=== PATIENT | male | born 1995 | race Caucasian/White ===

== ENCOUNTER 2016-09-24 12:57 | Inpatient (IN) | payer OTHER ==
[~2016-09-24] VITALS: Ht 180.3 cm; Wt 115.2 kg
[2016-09-24 13:15] VITALS: BP 133/84; PULSE 84; RESP 18; O2SAT 98
--- NOTE | 2016-09-24 13:56 | ED.REPORT ---
HPI-Extremity Problem Lower Date of Service Sep 24, 2016 ED Provider: Jayce Bal DO Patient is a 21 year old male who presents to the ED complaining of left leg pain onset 4 days ago. Associated symptoms include swelling and erythema of the leg. He denies fever, chest pain or shortness of breath. Patient denies having any open wounds or recent injury to his leg. The patient was seen earlier at who recommended the patient come to the ED. He is unsure his family's history for blood clots. Patient also states that he had a mass on his lung a few years ago that was supposed to be followed due to suspicion for cancer vs pneumonia but hasn't had it checked on. Nursing Notes Stated Complaint: SWOLLEN LEFT LEG Chief Complaint: Extremity Trauma Nursing Notes Reviewed: Yes Allergies: Coded Allergies: No Known Allergies (Unverified , 09/24/16) General Time Seen by MD: 13:56 Chief Complaint Leg injury left Hx Obtained From: Patient Arrived By: Walk-in Onset Occurred: 3 days ago Symptom Duration: Since onset Location: : Leg left Quality: Painful Severity: Current: Moderate Associated with: Reports: Unable to bear weight Immunizations: Unknown Recent Healthcare: No recent doctor visit, No recent hospitalization Similar Sx Previous: No Past Medical History Past Medical History none reported Past Surgical History none reported Smoking History Current Every Day Smoker Social History Alcohol Use: "Social" Drug Use: Denies drug use Other Social History: Good social support Ambulatory Status Independent Review of Systems Constitutional: Denies: Chills, Fatigue Musculoskeletal: Reports: Extremity pain, Extremity swelling Complete sys rev & neg: except as marked. Respiratory: Denies: Non-productive cough, Shortness of breath Cardiovascular: Denies: Chest pain Physical Exam Initial Vital Signs Vital Signs (First) Date Time Temp Pulse Resp B/P Pulse Ox O2 Delivery O2 Flow Rate FiO2 09/24/16 13:15 36.6 84 18 133/84 98 Room Air Initial VS: Reviewed LOWER EXTREMITIES: unilateral swelling of the left leg varicose veins scattered nummular eczema no erythema or warmth Left Ankle: Positive: Swelling present..., Tenderness present... General/Constitutional: Awake, Alert Distress / Hydration: Positive: Distress mild Respiratory / Chest: Atraumatic, Breath sounds NL, Breath sounds = bilat, No respiratory distress Cardiovascular: Heart rate NL, Regular rhythm, Heart sounds NL Skin: Atraumatic, Color NL, No rash, Warm, Dry Neurologic: Oriented X3, Speech NL, No motor deficits, No sensory deficits 2+ dorsal pedis pulses Head / Eyes: Atraumatic, Normocephalic, PERRL, EOMI Upper Extremity / MS: Atraumatic, Full range of motion Psychiatric: Affect NL, Mood NL Interpretation & Diagnostics Lab Results Interpretation Result Diagram: 09/24/16 1430 09/24/16 1430 Test 09/24/16 14:30 White Blood Count 15.2th/mm3 (3.8-10.1) Red Blood Count 5.12mil/mm3 (4.40-5.80) Hemoglobin 15.9g/dL (13.8-17.2) Hematocrit 46.9% (41.0-50.0) Mean Corpuscular Volume 91.6fL (81-100) Mean Corpuscular Hemoglobin 31.1pg (27.0-35.0) Mean Corpuscular Hemoglobin Concent 33.9% (32.0-37.0) Red Cell Distribution Width 12.7% (12.3-15.4) Platelet Count 194bil/L (150-400) Neutrophils (%) (Auto) 72.9% (40-74) Lymphocytes (%) (Auto) 11.4% (14-46) Monocytes (%) (Auto) 15.0% (4-12) Eosinophils (%) (Auto) 0.3% (0-5) Basophils (%) (Auto) 0.1% (0-3) Prothrombin Time 10.6sec (8.1-12.5) Prothromb Time International Ratio 0.99ratio Activated Partial Thromboplast Time 26.3sec (22.8-33.0) Sodium Level 138mEq/L (134-144) Potassium Level 4.3mEq/L (3.5-5.2) Chloride Level 100mEq/L (97-108) Carbon Dioxide Level 20mmol/L (18-29) Blood Urea Nitrogen 7mg/dL (6-20) Creatinine 0.46mg/dL (0.76-1.27) Estimat Glomerular Filtration Rate 246mL/min (>59) Glucose Level 104mg/dL (60-99) Calcium Level 9.2mg/dL (8.5-10.1) Total Bilirubin 1.0mg/dL (0.0-1.2) Aspartate Amino Transf (AST/SGOT) 18U/L (0-50) Alanine Aminotransferase (ALT/SGPT) 17U/L (0-44) Alkaline Phosphatase 81U/L (25-150) Total Protein 7.3g/dL (6.4-8.4) Albumin 3.9g/dL (3.4-5.0) Re-Eval/Medical Decision Med Decision/Clinical Course Unilateral leg swelling and pain concern for DVT. Care transfer to Dr. Bell pending ultrasound. Discharge & Departure Shift Change Sign-Out Patient Care Transferred: Yes Discussed Complaint(s): Yes Impression: Primary Impression: Left leg cellulitis Discharge Condition All VS Reviewed: Yes Condition: Stable Referrals: NOPCP (PCP) Care Transferred to: Dr. Bell Care Transferred at: 15:06 Margarita Attestation Portions of this note were transcribed by Gisell Andrade. I, Dr. Peter Buchanan personally performed the history, physical exam and medical decision-making; I reviewed and confirmed the accuracy of the information in the transcribed note. Signed by: Margarita Issa, 09/24/16 and 1420 Jayce Euceda DO Sep 24, 2016 13:56 Jannet Andrade Sep 24, 2016 14:12
[2016-09-24] MEDS ORDERED: Ondansetron 8 mg ODT Tablet PO ONE (14:10)
[2016-09-24] MEDS ORDERED: HYDROmorphone 1 mg/mL Inj IM ONE (14:10)
[2016-09-24 14:39] LABS: BASOPHILS % (AUTO) 0.1 % (0-3); EOSINOPHILS % (AUTO) 0.3 % (0-5); Mean Corpuscular Hemoglobin 31.1 pg (27.0-35.0); Mean Corpuscular Volume 91.6 fL (81-100); NEUTROPHILS % (AUTO) 72.9 % (40-74); Platelet Count 194 bil/L (150-400)
[2016-09-24 14:56] LABS: INR 0.99 ratio
[2016-09-24] MEDS: HYDROmorphone 0.5 mg/0.5 mL iSecure Syringe IVPUSH PRN ×3 (15:05→17:13)
--- NOTE | 2016-09-24 16:19 | DRSVH ---
PROCEDURE: US VEINOUS LEG DUPLEX UNILATERAL, LEFT INDICATIONS: UNILATERAL SWELLING AND PAIN TECHNIQUE: Real-time imaging, as well as color and pulse Doppler interrogation, were performed of the lower extr emity deep veins from the inguinal ligament to the popliteal fossa. COMPARISON: None. FINDINGS: There are occlusive filling defects involving the mid to distal femoral vein, popliteal vei n, peroneal vein posterior tibial vein consistent with intraluminal thrombus. Nonocclusive filling de fect is seen in the proximal femoral vein. IMPRESSION: Extensive deep venous thrombosis in the left lower extremity. Dictated by: Florence Michaels M.D. on 09/24/2016 at 16:16 Approved by: Florence Michaels M.D. on 09/24/2016 at 16:17
[2016-09-24] MEDS ORDERED: Heparin 5,000 Unit/mL Inj IVPUSH PRN (16:50)
[2016-09-24] MEDS ORDERED: Heparin 5,000 Unit/mL Inj IVPUSH ONE (16:50)
[2016-09-24] MEDS ORDERED: Heparin 25K Unit/500mL 0.45 NS 25,000 UNIT in IV Premix 1 EACH IV SCH ×3 (16:50→21:25)
[2016-09-24 17:19] VITALS: BP 124/60; PULSE 81; RESP 16; O2SAT 95
[2016-09-24] MEDS ORDERED: Dextrose 5% 0.45% NaCl 1,000 ML IV SCH (18:07)
[2016-09-24] MEDS ORDERED: Alum-Mag Hydrox-Simeth 30 mL Suspension PO PRN ×2 (18:10→21:00)
[2016-09-24] MEDS ORDERED: Ondansetron 2 mg/mL 2 mL Inj IVPUSH PRN ×2 (18:10→21:00)
[2016-09-24] MEDS: HYDROmorphone 1 mg/mL Inj IVPUSH PRN ×2 (18:13→20:41)
[2016-09-24 19:01] VITALS: BP 121/72; PULSE 95; RESP 18; O2SAT 97
--- NOTE | 2016-09-24 20:00 | NUR ---
ADMIT Pt arrived at 1999 via gurney, walked to bed with some help r/t leg pain. Mom with him. Pt in 910 pain despite Dilaudid given. Heparin gtt at 18 units/kg/hr. Next ptt to be drawn at 2200. Continuing care.
[2016-09-24 20:51] VITALS: BP 128/84; PULSE 85; RESP 20; O2SAT 98
[2016-09-24] MEDS: 0.9% Sodium Chloride 1,000 ML IV SCH (20:59)
[2016-09-24] MEDS ORDERED: Polyethylene Glycol (PEG) 17 Gm Powder PO PRN (21:00)
[2016-09-24] MEDS ORDERED: RANI300C PO (21:22)
[2016-09-24] MEDS ORDERED: Heparin Protocol Boluses IVPUSH PRN (21:25)
[2016-09-24] MEDS: HYDROcodone-APAP 5-325 mg Tablet PO PRN (21:27)
[2016-09-24] MEDS ORDERED: HYDR50TA76 PO (23:45)
[2016-09-24] MEDS ORDERED: hydrOXYzine Pamoate 25 mg Capsule PO PRN (23:50)
[2016-09-25] VITALS (11 sets, daily range): BP systolic 106–125; BP diastolic 60–83; PULSE 54–88; RESP 16–24; O2SAT 93–100
--- NOTE | 2016-09-25 00:01 | PCM.HPMED ---
Subjective Date of Service Sep 24, 2016 Primary Provider: Admitting Physician: Rush Mari MD Primary Care Physician: Irma Devlin MD Attending Physician: Rush Mari MD Chief Complaint: Left leg pain History of Present Illness: Luis Milner is a 21-year-old gentleman presents with left lower extremity pain started 4 days ago, started to cramp in his left lower extremity after sleeping on the floor 1 night. Pain got progressively worse until today when he got out of bed and said he was not able to bear any weight. He used a cane to ambulate today before and in the emergency department. He's currently every day smoker for 30 years, drinks 2 beers a night no previous surgeries there is family history of breast and cervical cancer on his mom's side denies any known medical problems on his father's side, no history of blood clots in the family were previously. States he was treated for pneumonia about a year ago and developed hemoptysis at the time was treated as an outpatient but described as brandon blood. He was told he is also a follow-up x-ray to evaluate for evolution of opacity that was seen at that time which he never did. He denies any fevers chills, lightheadedness dizziness, chest pain, shortness of breath, dysuria, constipation diarrhea or nausea, no history of the same, only symptom at this time is pain to his left posterior tibial region. On presentation 36.6C 84, 18, 133/84, 98% on room air WBC 15.2, 15% monocytes, CMP unremarkable, INR 0.99 Venous ultrasound of his leg showed extensive deep venous thrombosis. Case was discussed with interventional radiologist Dr. Rodriguez, dairy feed worker Dr. Valiente and Dr. Cruz, ultimately the consensus was Dr. Cruz will see the patient in the hospital tomorrow and evaluate for response to heparin therapy. Patient was started on heparin drip and admitted for acute DVT. Review of Systems: A comprehensive review of systems was conducted with the patient and found to be negative except as above in the history of presenting illness. Allergies Coded Allergies: No Known Allergies (Unverified , 09/24/16) Home Medications Hydroxyzine 50 mg daily at bedtime when necessary for insomnia Ranitidine 300 mg daily PMH Insomnia Allergies Obesity Tobacco abuse Marijuana abuse History of hemoptysis with uncertain etiology Surgical History Denies any surgeries Family History Mother LSIL, breast cancer on her side Biological father denies any known medical problems. Social History Hx Alcohol Use: Yes Alcoholic Drinks Per Day: 1/5 a night a few months ago, now three beers a night Hx Substance Use: Yes (marijuana nightly, 09/23/16) Smoking Status: Current Every Day Smoker Living Arrangement: with Family Exam Vital Signs Vital Sign - Last Date Time Temp Pulse Resp B/P Pulse Ox O2 Delivery O2 Flow Rate FiO2 09/24/16 20:51 36.7 85 20 128/84 98 09/24/16 19:01 Room Air Exam General: Laying in bed, no apparent distress. Age-appropriate HEENT: Normocephalic, atraumatic, EOMI grossly, mucous membranes moist, neck supple without lymphadenopathy, Cardiovascular: Regular rate and rhythm, no clicks murmurs rubs, peripheral pulses 2/4 equal bilaterally including DPs Pulmonary: Clear to auscultation bilaterally, no W/R/R. Abdominal: Soft to palpation, bowel sounds present 4, no hepatosplenomegaly. Negative rebound. Extremities: Left lower extremity is larger compared to right, there is no obvious redness, however lower extremities warmer than right, tenderness the posterior tibial area, no pallor or cyanosis Neuro: Neurologically grossly intact. MSK: Upper extremities equal bilaterally 5 out of 5 strength, left lower extremity difficult to move secondary to pain passive and active. Psych: Oriented to person place time and situation, and appropriate mood and affect. Lab and Diagnostics Result Diagram: 09/24/16 1430 09/24/16 1430 X-Rays, CTs and MRIs Left lower extremity duplex ultrasound, performed 09/24/2016 IMPRESSION: Extensive deep venous thrombosis in the left lower extremity. Dictated by: Florence Michaels M.D. on 09/24/2016 at 16:16 Assessment & Plan 21-year-old male every day smoker, history of suspicious opacity on x-ray, presents with left lower extremity pain evaluation showed diffuse DVT, started on heparin. Acute left lower extremity DVT, POA, active Warm, edematous, ultrasound proven DVT. Etiologies include venous stasis from laying on the floor, chronic smoking, and concern for cancer. Heparin drip Cardiovascular intervention to be determined, Dr. Cruz consulted and following. Chest x-ray 2 view to evaluate for resolution of opacity in the presence of tobacco use, previous hemoptysis, and failure to follow up on resolution. Pain management with Vicodin, hydromorphone IV every 3 hours for breakthrough pain We will defer the choice for long-term anticoagulation to day team and specialist. Monitor for abrupt SOB and or CP, other signs of embolization. Unfortunately the patient cannot have a hypercoagulable workup as he has already received Heparin Chronic insomnia, POA active Continue home medication of hydroxyzine 50 mg daily at bedtime when necessary Chronic tobacco abuse, POA active Tobacco cessation education Nicotine patch Patient is admitted to inpatient status, greater than 2 minutes and dissipated based on presenting symptoms, complexity of care, and anticipated risk of adverse events. Pain Evaluation: Pain not Controlled GI Prophylaxis: Not indicated VTE Prophylaxis: Other (Heparin GGT) Resuscitation Status: CPR: Attempt Resuscitation Attending Statement The patient was seen and examined together with Dr. Dang on 09/24 and I agree with the history, exam and plan as outlined in the note above. Jairo Merrill DO Sep 25, 2016 00:01 Rush Mari MD Sep 25, 2016 01:25
[2016-09-25] MEDS: HYDROcodone-APAP 5-325 mg Tablet PO PRN ×4 (02:14→22:33)
--- NOTE | 2016-09-25 03:30 | NUR ---
PAIN Pt reports pain from 7-12/14. Upon admit, pt restless in bed and moaning in pain. VSS. Gave pt 1 mg Dilaudid. Pt slept, but woke up soon after reporting 12/[address] Merrill for additional orders. Giving 2 tabs [place] q4h while awake as well as 975mg of Tylenol with 0.5mg Dilaudid for severe breakthrough pain. Pt reporting some relief in pain compared to admit. Pt no longer noted to be moaning or is as restless in bed. Continuing care.
[2016-09-25] MEDS: 0.9% Sodium Chloride 1,000 ML IV SCH ×2 (05:23→16:16)
[2016-09-25] MEDS: HYDROmorphone 0.5 mg/0.5 mL iSecure Syringe IVPUSH PRN ×5 (05:28→19:51)
[2016-09-25] MEDS: Heparin 25K Unit/500mL 0.45 NS 25,000 UNIT in IV Premix 1 EACH IV SCH ×2 (05:39→18:59)
[2016-09-25 06:50] LABS: BASOPHILS % (AUTO) 0.2 % (0-3); EOSINOPHILS % (AUTO) 2.3 % (0-5); MONOCYTES % (AUTO) 15.9 % (4-12); Mean Corpuscular Hemoglobin 31.5 pg (27.0-35.0); NEUTROPHILS % (AUTO) 55.8 % (40-74); Platelet Count 200 bil/L (150-400)
--- NOTE | 2016-09-25 13:58 | NUR ---
Social Work- Screening/Readiness for Discharge Data: EMR reviewed. Pt is a 21 year old male admitted 09/24/16 under observation status for DVT per H&P. Pt's insurance is [email or web address]. Pt's PCP is Irma Devlin MD. SW met with pt at bedside regarding discharge plan, SW role explained. Pt alert and oriented x3. Pt resides in [place] near [place] with his mother, step father, and siblings where he is independent at baseline. Per chart review pt uses cane at baseline. Pt is noted to drink 3 beers daily. SW will follow for CD assessment orders from . Pt anticipated to discharge home with family to transport via POV. No discharge needs identified. SW will continue to follow if needs arise. Assessment: Pt who is independent at baseline. Plan: Pt anticipated to discharge home with family to transport via POV. No discharge needs identified. SW will continue to follow if needs arise. Ermelinda Josue MSW
--- NOTE | 2016-09-25 14:26 | PCM.PNMED ---
Subjective Date of Service Sep 25, 2016 Subjective Continues to have left lower extremity severe pain requiring Dilaudid but not responding much. Denies dyspnea Exam Vital Signs Vital Sign - Last Date Time Temp Pulse Resp B/P Pulse Ox O2 Delivery O2 Flow Rate FiO2 09/25/16 12:30 36.5 88 16 114/70 93 Room Air Intake and Output 09/24/16 09/24/16 09/25/16 Cumulative From/Thru 15:00 23:00 07:00 09/24/16 13:15 - 09/25/16 05:43 Intake Total 1455 ml 1455 ml Balance 1455 ml 1455 ml Intake IV Total 1455 ml 1455 ml # Voids 2 2 Exam General: Laying in bed, no apparent distress. Age-appropriate HEENT: Normocephalic, atraumatic, EOMI grossly, mucous membranes moist, neck supple without lymphadenopathy, Cardiovascular: Regular rate and rhythm, no clicks murmurs rubs, peripheral pulses 2/4 equal bilaterally including DPs Pulmonary: Clear to auscultation bilaterally, no W/R/R. Abdominal: Soft to palpation, bowel sounds present 4, no hepatosplenomegaly. Negative rebound. Extremities: Left lower extremity is larger compared to right, there is no obvious redness, however lower extremities warmer than right, tenderness the posterior tibial area, no pallor or cyanosis Neuro: Neurologically grossly intact. MSK: Upper extremities equal bilaterally 5 out of 5 strength, left lower extremity difficult to move secondary to pain passive and active. Psych: Oriented to person place time and situation, and appropriate mood and affect. IVs and Medications Medications Reviewed: Medications were reviewed in detail Lab and Diagnostics Result Diagram: 09/25/16 0600 09/25/16 0600 X-Rays, CTs and MRIs Left lower extremity duplex ultrasound, performed 09/24/2016 IMPRESSION: Extensive deep venous thrombosis in the left lower extremity. Dictated by: Florence Michaels M.D. on 09/24/2016 at 16:16 Assessment & Plan 21-year-old male every day smoker, history of suspicious opacity on x-ray, presents with left lower extremity pain evaluation showed diffuse DVT, started on heparin. #Acute left lower extremity DVT, POA, active Warm, edematous, ultrasound proven DVT. DVT seems to be unprovoked. Etiologies include venous stasis from laying on the floor, chronic smoking, and concern for cancer. Heparin drip Discussed with Dr. Cruz, patient continues to have severe pain. He will do thrombolysis later today Chest x-ray 2 view to evaluate for resolution of opacity in the presence of tobacco use, previous hemoptysis, and failure to follow up on resolution. Pain management with Vicodin, hydromorphone IV every 3 hours for breakthrough pain We will defer the choice for long-term anticoagulation after intervention Monitor for abrupt SOB and or CP, other signs of embolization. Unfortunately the patient cannot have a hypercoagulable workup as he has already received Heparin There is no literature evidence that panscanning to look for cancer is superior to age appropriate cancer screening for unprovoked DVT. PCP may consider doing a hypercoagulable workup and panscanning Outpatient given extensive family history of cancer. #Chronic insomnia, POA active Continue home medication of hydroxyzine 50 mg daily at bedtime when necessary #Chronic tobacco abuse, POA active Tobacco cessation education Nicotine patch Disposition: Discharge in 1-2 days GI Prophylaxis: Not indicated VTE Prophylaxis: Other (Heparin GGT) Resuscitation Status: CPR: Attempt Resuscitation Cheikh Guidry MD Sep 25, 2016 14:25
--- NOTE | 2016-09-25 16:32 | DRSVH ---
PROCEDURE: X-RAY CHEST, TWO VIEWS ([id number]) INDICATIONS: Resolution of previously seen opacity TECHNIQUE: 2 views of the chest were acquired. COMPARISON: None. FINDINGS: Surgical changes and devices: None. Lungs and pleura: No pleural effusions or pneumothorax. Lungs are clear. Mediastinum: Mediastinal contours are normal. Heart size is normal. Bones and chest wall: No suspicious bony abnormalities. Soft tissues appear unremarkable. IMPRESSION: No acute cardiopulmonary disease. Dictated by: Jony Plunkett [facility] Interpreted: Ok Kenney MD on 09/25/2016 at 14:00 Approved by: Ok Kenney M.D. on 09/25/2016 at 16:29
--- NOTE | 2016-09-25 16:33 | NUR ---
Pain/NPO Pt. has been c/o of left leg pain throughout shift and req. norco PRN PO ~q4hr. IV dilaudid PRN has been used x2 on shift for breakthrough pain. Pt. is also going to go for a EKOs procedure later this afternoon. Pt. has been placed NPO and Pt. ate last this morning having a few bites from the food that his mom brought him. Will continue to monitor.
--- NOTE | 2016-09-25 17:41 | CONS ---
[address] [address] CONSULTATION REPORT PATIENT: ROGER VILLALBA : 1995 MR#: [id number] ADMIT: 09/24/2016 JOB ID: [id number] DATE OF SERVICE: 09/24/2016 CHIEF COMPLAINT: Left leg pain. HISTORY OF PRESENT ILLNESS: This 21-year-old young man came in with history of swollen leg for the last four days. The patient had travel to [place]. He came back in a car. The patient states they took multiple breaks on the way to smoke. He has been ambulatory. However he subsequently started noticing cramping in his left leg and subsequently it also got swollen and it was painful enough that he decided to seek medical attention. Because of his swollen leg an ultrasound was ordered which was consistent with extensive DVT in the left lower extremity. He is denying any fevers, chills, shortness of breath, or any hemoptysis. PAST MEDICAL HISTORY: Mainly for pneumonia. PERSONAL HISTORY: He is a smoker. He used to drink heavily but currently about two beers a day. He occasionally smokes marijuana as well. MEDICATIONS AT HOME: Hydroxyzine and ranitidine. ALLERGIES: None. FAMILY HISTORY: I spoke to the patient's mother as well. There is no family history that she could tell me of bleeding diathesis or hypercoagulable disorders. REVIEW OF SYSTEMS: Comprehensive review of systems was done and is negative. More importantly, no history of GI or bleeding. No history of seizures or strokes. No bleeding diatheses. PHYSICAL EXAMINATION: Obese young man, mildly anxious. Pulse 88, blood pressure 128/84, room air ox 96% to 98%. Neck: Supple. No JVD. Chest: Clear. Heart sounds S1, S2, regular. No gallops. Left extremity is significantly swollen and larger than the right. Exquisite tenderness of the calf is noted. No pallor or cyanosis. PLASTIC BOAT PATCHER: Alert and oriented. LABORATORY DATA: Reviewed. White count was elevated at 15.2. Creatinine is normal. Hemoglobin was 15.9. Left extremity duplex was consistent with extensive deep venous thrombosis. ASSESSMENT AND PLAN: This young man presents with extensive deep venous thrombosis with occlusive defect involving the mid to distal femoral vein and the thrombus extends into the proximal femoral veins as well. My initial plan was to treat him conservatively; however, he continued to have leg discomfort and needed Dilaudid and [place]. I was called by Dr. Guidry to reevaluate the patient. After discussion with the patient today we decided to proceed ahead with catheter-directed thrombolysis. The patient is aware of the risks and benefits. His mother is also aware because I had spoken and discussed all this with the patient and his mother. The procedure is scheduled for later this evening.
[2016-09-25] MEDS ORDERED: Alteplase (Cathflo) Inj 10 MG in 0.9% Sodium Chloride 250 ML IV ONE (18:35)
--- NOTE | 2016-09-25 18:37 | NUR ---
Transfer Pt. was taken to the prosthetics lab technician for EKOS procedure and [place] [facility] [place]1730. Pt. left with some anxiety but valium 5mg PO was given per MD orders. After procedure Pt. will go to room 2013 CCU where report was given via telephone to Tish Eckert at about 1755. Pts. mom took all his belongings from room 246-2 and went with Pt. to wait in the waiting area.
--- NOTE | 2016-09-25 18:50 | NUR ---
Arrival to unit Pt arrived to room 2012. Opens eyes to verbal stimuli. Oriented x 3. Venous catheter site to left leg, c/d/i. No s/s of bleeding at site. Pulses intact. EKOS tx initiated. SR/SB per halfway house counselor. Pressure stable. Patient oriented to room and call light. Plan of care reviewed. Will continue to monitor.
[2016-09-25] MEDS ORDERED: LORazepam 0.5 mg Tablet PO PRN (19:00)
--- NOTE | 2016-09-25 19:45 | DI96 ---
[address] [address] PERIPHERAL CATHETERIZATION/INTERVENTION REPORT PATIENT: ROGER VILLALBA : 1995 MR#: [id number] ADMIT: 09/24/2016 JOB ID: [id number] PROCEDURE: 1. Catheter-directed thrombolysis of the left lower extremity. 2. Venogram. 3. Ultrasound-guided access. PROCEDURAL DETAILS: These are well enumerated in the procedure log, to which the reader and the coders are referred. Briefly, with using ultrasound guidance and an echogenic access needle, the left popliteal vein was accessed. Next a 6-[place] sheath was placed in the femoral vein and using a guidewire we were able to direct a catheter up into the common femoral vein. An EKOS catheter was then inserted. The patient will be started on tPA drip once he gets to the floor. Next, the venogram revealed extensive clot burden in the popliteal and the great saphenous vein. After placing the catheter in the proximal iliac vein, we did a brief injection. There was no evidence of clot in the iliacs. At this point, the catheter was withdrawn back and placed at the level of the femoral head. The ultrasonic wire was then placed in the catheter. There were no complications. The patient will be transported to the floor and will receive tPA infusion for 6 hours.
[2016-09-26] MEDS: 0.9% Sodium Chloride 1,000 ML IV SCH ×2 (03:30→12:59)
[2016-09-26 03:31] VITALS: BP 115/60; PULSE 53; RESP 21; O2SAT 99
[2016-09-26] MEDS: HYDROcodone-APAP 5-325 mg Tablet PO PRN ×4 (03:42→17:37)
--- NOTE | 2016-09-26 04:45 | NUR ---
Cardiac/EKOS/Resp/Pain Patient did well this shift, kept legs straight and tolerated EKOS well, pumps infused TPA without problem, cathThe Fabric came in at 0045 to remove EKOS catheter, heparin TKO remains infusing into sheath, patient stated left leg feels better since EKOS treatment, patient slept well after pain medication but sats dropped to 88-92%, O2 placed at 2L NC, sats 96-97% this AM, pain tolerable 08/13 and Adrian working well for pain control. Mom in room at bedside, no distress noted, no bleeding noted. Will continue to monitor. Addendum: 09/26/16 at 0457 by ELODIA LEVINE RN Amended: Links added. Addendum: 09/26/16 at 0609 by ELODIA LEVINE RN 0600 - Patients HR in the 50's at this time, occasionally HR is decreasing to the 40's at times.
[2016-09-26 07:24] VITALS: BP 119/88; PULSE 59; RESP 14; O2SAT 96
[2016-09-26 08:36] LABS: BASOPHILS % (AUTO) 0.1 % (0-3); EOSINOPHILS % (AUTO) 1.2 % (0-5); MONOCYTES % (AUTO) 14.7 % (4-12); Mean Corpuscular Hemoglobin 31.2 pg (27.0-35.0); Mean Corpuscular Volume 93.1 fL (81-100); NEUTROPHILS % (AUTO) 67.4 % (40-74); Platelet Count 176 bil/L (150-400)
[2016-09-26] MEDS: Heparin 5,000 Unit/mL Inj IVPUSH PRN ×2 (10:02→17:44)
[2016-09-26 12:30] VITALS: BP 110/60; PULSE 73; RESP 16; O2SAT 98
--- NOTE | 2016-09-26 14:31 | NUR ---
Cardiac/EKOS Venous sheath pulled in laborer beam house at aprox 0830, bedrest until 1030. Stood at edge of bed after bedrest order lifted. Pt c/o pain behind L knee and L calf pain. Dr. Anthony oakes notified, awaiting orders. No hematoma present, no oozing, palpable PT/DP pulses. L calf slightly more taught than earlier this morning. NSR 70s, BP stable with SBPs in 1-teens. Heparin gtt infusing per DVT/PE protocol. SpO2 mid to high 90s on RA. [place] PRN for chronic back pain and LLE pain; effective relief per pt report.
--- NOTE | 2016-09-26 14:48 | PCM.PNMED ---
Subjective Date of Service Sep 26, 2016 Subjective Patient was examined shortly after returning from EKOS procedure, states that his breathing has improved dramatically; and that his leg pain remains but is much improved. No significant overnight events. Comprehensive ROS negative except as outlined above. Exam Vital Signs Vital Sign - Last Date Time Temp Pulse Resp B/P Pulse Ox O2 Delivery O2 Flow Rate FiO2 09/26/16 12:30 37.0 73 16 110/60 98 Room Air 09/26/16 03:31 2.00 Intake and Output 09/25/16 09/25/16 09/26/16 Cumulative From/Thru 15:00 23:00 07:00 09/24/16 13:15 - 09/26/16 06:04 Intake Total 2741 ml 4196 ml Output Total 2025 ml 2025 ml Balance 716 ml 2171 ml Intake Oral 120 ml 120 ml IV Total 2621 ml 4076 ml Output Urine Total 2025 ml 2025 ml # Voids 2 # Bowel Movements 0 0 Exam Gen: A/O x3 pleasant cooperative young man in NAD Neck: Supple, non tender, no thyromegaly, no JVD HEENT: PERRL, EOMI, no scleral icterus, No conjunctival pallor CV: RRR, no murmurs rubs or gallops Resp: Lungs CTA BL, no wheezing rales or rhonchi Abd: Soft, non tender, no organomegaly, no rebound or guarding Extr: Grossly swollen LLE, tenderness to palpation in popliteal fossa Neuro: CN 2-12 grossly intact, no focal neurologic deficit. Psych: Patient quite relieved to be back from procedure. IVs and Medications IV Fluids 500 ml NS delivered with IV meds Medications Reviewed: Medications were reviewed in detail Lab and Diagnostics Item Value Date Time Red Blood Count 4.90 mil/mm3 09/26/16 08 Mean Corpuscular Volume 93.1 fL 09/26/16 08 Mean Corpuscular Hemoglobin 31.2 pg 09/26/16819 Mean Corpuscular Hemoglobin Concent 33.6 % 09/26/16819 Red Cell Distribution Width 12.2 % L 09/26/16 08 Neutrophils (%) (Auto) 67.4 % 09/26/16 08 Lymphocytes (%) (Auto) 16.3 % 09/26/16 08 Monocytes (%) (Auto) 14.7 % H 09/26/16 0820 Eosinophils (%) (Auto) 1.2 % 09/26/16 0820 Basophils (%) (Auto) 0.1 % 09/26/16 0820 Estimat Glomerular Filtration Rate 234 mL/min 09/26/16 0820 Calcium Level 8.9 mg/dL 09/26/16 0820 Alanine Aminotransferase (ALT/SGPT) 21 U/L 09/26/16 0820 Total Bilirubin 0.7 mg/dL 09/26/16 0820 Aspartate Amino Transf (AST/SGOT) 22 U/L 09/26/16 0820 Alkaline Phosphatase 78 U/L 09/26/16 0820 Albumin 3.7 g/dL 09/26/16 0820 Total Protein 6.4 g/dL 09/26/16 0820 Activated Partial Thromboplast Time 42.3 sec H 09/26/16 1251 Fibrinogen 278 mg/dL 09/26/16 1251 Result Diagram: 09/26/16 1251 09/26/16 0820 X-Rays, CTs and MRIs Left lower extremity duplex ultrasound, performed 09/24/2016 IMPRESSION: Extensive deep venous thrombosis in the left lower extremity. Dictated by: Florence Michaels M.D. on 09/24/2016 at 16:16 . Assessment & Plan 21-year-old male every day smoker, history of suspicious opacity on x-ray, presents with left lower extremity pain evaluation showed diffuse DVT, taken for EKOS per Dr. Cruz, now transitioned back to heparin drip Acute left lower extremity DVT, POA, acute. active -Warm, edematous, ultrasound proven DVT. -DVT seems to be unprovoked. Etiologies include venous stasis from laying on the floor, chronic smoking, and concern for cancer. -Heparin drip -Discussed with Dr. Cruz, who conducted EKOS on 09/25/16 with subsequent venogram -2V CXR unremarkable -Pain management with Vicodin, hydromorphone IV every 3 hours for breakthrough pain -Will consider transition to oral anticoagulant once DC more imminent -Monitor for abrupt SOB and or CP, other signs of embolization. -Unfortunately the patient cannot have a hypercoagulable workup as he has already received Heparin -There is no literature evidence that panscanning to look for cancer is superior to age appropriate cancer screening for unprovoked DVT. -PCP may consider doing a hypercoagulable workup and panscanning as an outpatient given extensive family history of cancer. Chronic insomnia, POA active -Continue home medication of hydroxyzine 50 mg daily at bedtime when necessary Chronic tobacco abuse, POA active -Imperative patient quits smoking given unprovoked DVT -Tobacco cessation education -Nicotine patch Disposition: Anticipate DC home tomorrow with no needs, will need extensive outpatient workup including hypercoaguable workup Pain Evaluation: Adequate Pain Control GI Prophylaxis: Not indicated VTE Prophylaxis: Other (Heparin GGT) Resuscitation Status: CPR: Attempt Resuscitation Attending Statement The patient was seen and examined together with Dr. Freitas on 09/26/2016 and I agree with the history, exam and plan as outlined in the note above. . Damaso Freitas DO Sep 26, 2016 14:48 Gerry Holder MD Sep 26, 2016 16:43
[2016-09-26 16:30] VITALS: BP 118/75; PULSE 80; RESP 18; O2SAT 98
[2016-09-26 16:45] VITALS: PULSE 76
[2016-09-26] MEDS: Heparin 25K Unit/500mL 0.45 NS 25,000 UNIT in IV Premix 1 EACH IV SCH (21:15)
[2016-09-26 22:11] VITALS: BP 116/71; PULSE 79; RESP 20; O2SAT 96
[2016-09-27] MEDS: HYDROcodone-APAP 5-325 mg Tablet PO PRN ×3 (00:21→22:29)
[2016-09-27] MEDS: Heparin 5,000 Unit/mL Inj IVPUSH PRN (02:36)
[2016-09-27 03:52] VITALS: BP 134/82; PULSE 58; RESP 16; O2SAT 97
[2016-09-27 06:15] VITALS: PULSE 80
--- NOTE | 2016-09-27 07:12 | NUR ---
Pain Pt pivoted into w/c and was taken around the unit. Post ambulation, pt stated increased pain that subsided with being back into bed and receiving rest. Pain at rest 5/10. PRN Pilot given before going to sleep. Pt voiced no further concerns.
--- NOTE | 2016-09-27 07:34 | PCM.CONPHA ---
Subjective Date of Service: Sep 27, 2016 Left leg pain Reason for Pharmacy Consult: Anticoagulation Management Objective Vital Signs Date Time Temp Pulse Resp B/P Pulse Ox O2 Delivery O2 Flow Rate FiO2 09/27/16 06:15 80 09/27/16 03:52 36.3 58 16 134/82 97 Room Air 09/26/16 22:11 36.7 79 20 116/71 96 Room Air 09/26/16 16:45 76 09/26/16 16:30 36.9 80 18 118/75 98 Room Air 09/26/16 12:30 37.0 73 16 110/60 98 Room Air Intake and Output 09/25/16 09/26/16 09/27/16 00:00 00:00 00:00 Intake Total 1455 ml 3812 ml Output Total 3750 ml Balance 1455 ml 62 ml Weight (Kilograms): 115.200 Height (Feet): 5 Height (Inches): 11.00 Test 09/24/16 14:30 09/25/16 06:00 09/26/16 08:20 09/26/16 19:25 Prothrombin Time 10.6sec (8.1-12.5) Prothromb Time International Ratio 0.99ratio Erythrocyte Sedimentation Rate 2mm/hr (0-15) White Blood Count 11.8th/mm3 (3.8-10.1) Red Blood Count 4.90mil/mm3 (4.40-5.80) Hemoglobin 15.3g/dL (13.8-17.2) Mean Corpuscular Volume 93.1fL (81-100) Mean Corpuscular Hemoglobin 31.2pg (27.0-35.0) Mean Corpuscular Hemoglobin Concent 33.6% (32.0-37.0) Red Cell Distribution Width 12.2% (12.3-15.4) Neutrophils (%) (Auto) 67.4% (40-74) Lymphocytes (%) (Auto) 16.3% (14-46) Monocytes (%) (Auto) 14.7% (4-12) Eosinophils (%) (Auto) 1.2% (0-5) Basophils (%) (Auto) 0.1% (0-3) Sodium Level 136mEq/L (134-144) Potassium Level 4.2mEq/L (3.5-5.2) Chloride Level 100mEq/L (97-108) Carbon Dioxide Level 21mmol/L (18-29) Blood Urea Nitrogen 6mg/dL (6-20) Creatinine 0.48mg/dL (0.76-1.27) Estimat Glomerular Filtration Rate 234mL/min (>59) Glucose Level 84mg/dL (60-99) Calcium Level 8.9mg/dL (8.5-10.1) Total Bilirubin 0.7mg/dL (0.0-1.2) Aspartate Amino Transf (AST/SGOT) 22U/L (0-50) Alanine Aminotransferase (ALT/SGPT) 21U/L (0-44) Alkaline Phosphatase 78U/L (25-150) Total Protein 6.4g/dL (6.4-8.4) Albumin 3.7g/dL (3.4-5.0) Hematocrit 44.2% (41.0-50.0) Platelet Count 196bil/L (150-400) Test 09/27/16 00:18 Activated Partial Thromboplast Time 39.3sec (22.8-33.0) Fibrinogen 300mg/dL (157-380) Assessment/Plan Assessment/Plan 21yo male admitted for DVT, s/p catheter-directed thrombolysis & TPA gtt, starting therapeutic enoxaparin and warfarin. Ht 71inches, wt 115kg. Baseline INR from 09/24 = 0.99, other labs as above. Will give warfarin 7.5mg PO tonight. INRs ordered. Will start enoxaparin 1mg/kg subcut q12h since pt has normal renal function. Pharmacy will follow this pt's anticoagulation therapy. Montserrat Campos S PharmD Sep 27, 2016 07:34
[2016-09-27 07:41] LABS: BASOPHILS % (AUTO) 0.2 % (0-3); EOSINOPHILS % (AUTO) 3.1 % (0-5); MONOCYTES % (AUTO) 14.2 % (4-12); Mean Corpuscular Hemoglobin 31.3 pg (27.0-35.0); Mean Corpuscular Volume 90.2 fL (81-100); NEUTROPHILS % (AUTO) 60.3 % (40-74); Platelet Count 192 bil/L (150-400)
[2016-09-27 08:00] VITALS: PULSE 77
[2016-09-27 08:07] LABS: INR 0.95 ratio
[2016-09-27 08:08] LABS: Magnesium 1.9 mg/dL (1.6-2.6); Phosphorus 4.6 mg/dL (2.5-4.9)
[2016-09-27 10:10] VITALS: BP 122/78; PULSE 79; RESP 18; O2SAT 98
--- NOTE | 2016-09-27 15:25 | DRSVH ---
PROCEDURE: US VEINOUS LEG DUPLEX UNILATERAL, LEFT INDICATIONS: 21 year-old male with left lower extremity deep venous thrombosis. TECHNIQUE: Real-time imaging, as well as color and pulse Doppler interrogation, were performed of the lower extr emity deep veins from the inguinal ligament to the popliteal fossa. COMPARISON: None. FINDINGS: The common femoral vein remains normally compressible, and free of intraluminal thrombus. There is persistent noncompressible echogenic thrombus throughout the superficial femoral and poplit eal veins. IMPRESSION: No significant interval change in extensive left lower extremity deep venous thrombosis, involving the popliteal and superficial femoral veins, but not the common femoral vein. Dictated by: Quoc Eaton M.D. on 09/27/2016 at 15:18 Approved by: Quoc Eaton M.D. on 09/27/2016 at 15:23
--- NOTE | 2016-09-27 16:41 | PCM.PNMED ---
Subjective Date of Service Sep 27, 2016 Subjective The patient continues to complain of severe LE pain with any degree of ambulation or positioning beyond supine. He continues to deny SOB, dyspnea, or pain with deep inhalation. No significant overnight events Comprehensive ROS negative except as outlined above. Exam Vital Signs Vital Sign - Last Date Time Temp Pulse Resp B/P Pulse Ox O2 Delivery O2 Flow Rate FiO2 09/27/16 10:10 36.6 79 18 122/78 98 Room Air 09/26/16 03:31 2.00 Intake and Output 09/26/16 09/26/16 09/27/16 Cumulative From/Thru 15:00 23:00 07:00 09/24/16 13:15 - 09/27/16 06:24 Intake Total 1071 ml 400 ml 5667 ml Output Total 1725 ml 1200 ml 4950 ml Balance -654 ml -800 ml 717 ml Intake Oral 400 ml 400 ml 920 ml IV Total 671 ml 4747 ml Output Urine Total 1725 ml 1200 ml 4950 ml # Voids 2 4 # Bowel Movements 0 0 Exam Gen: A/O x3 pleasant cooperative young man in NAD Neck: Supple, non tender, no thyromegaly, no JVD HEENT: PERRL, EOMI, no scleral icterus, No conjunctival pallor CV: RRR, no murmurs rubs or gallops Resp: Lungs CTA BL, no wheezing rales or rhonchi Abd: Soft, non tender, no organomegaly, no rebound or guarding Extr: Grossly swollen LLE, tenderness to palpation in popliteal fossa Neuro: CN 2-12 grossly intact, no focal neurologic deficit. Psych: appropriate if slightly anxious mood and affect IVs and Medications Medications Reviewed: Medications were reviewed in detail Lab and Diagnostics Item Value Date Time Red Blood Count 4.82 mil/mm3 09/27/16 0710 Mean Corpuscular Volume 90.2 fL 09/27/16 0710 Mean Corpuscular Hemoglobin 31.3 pg 09/27/16 0710 Mean Corpuscular Hemoglobin Concent 34.7 % 09/27/16 0710 Red Cell Distribution Width 12.4 % 09/27/16 0710 Neutrophils (%) (Auto) 60.3 % 09/27/16 0710 Lymphocytes (%) (Auto) 21.9 % 09/27/16 0710 Monocytes (%) (Auto) 14.2 % H 09/27/16 0710 Eosinophils (%) (Auto) 3.1 % 09/27/16 0710 Basophils (%) (Auto) 0.2 % 09/27/16 0710 Estimat Glomerular Filtration Rate 240 mL/min 09/27/16 0710 Calcium Level 8.9 mg/dL 09/27/16 0710 Phosphorus Level 4.6 mg/dL 09/27/16 0710 Magnesium Level 1.9 mg/dL 09/27/16 0710 Total Bilirubin 0.3 mg/dL 09/27/16 0710 Aspartate Amino Transf (AST/SGOT) 30 U/L 09/27/16 0710 Alanine Aminotransferase (ALT/SGPT) 24 U/L 09/27/16 0710 Alkaline Phosphatase 83 U/L 09/27/16 0710 Total Protein 6.4 g/dL 09/27/16 0710 Albumin 3.4 g/dL 09/27/16 0710 Result Diagram: 09/27/16 1308 09/27/16 0710 X-Rays, CTs and MRIs Left lower extremity duplex ultrasound, performed 09/24/2016 IMPRESSION: Extensive deep venous thrombosis in the left lower extremity. Dictated by: Florence Michaels M.D. on 09/24/2016 at 16:16 US VEINOUS LEG DUPLEX UNILATERAL, LEFT IMPRESSION: No significant interval change in extensive left lower extremity deep venous thrombosis, involving the popliteal and superficial femoral veins, but not the common femoral vein. Dictated by: Quoc Eaton M.D. on 09/27/2016 at 15:18 Approved by: Quoc Eaton M.D. on 09/27/2016 at 15:23 . Assessment & Plan 21-year-old male every day smoker, history of suspicious opacity on x-ray, presents with left lower extremity pain evaluation showed diffuse DVT, taken for EKOS per Dr. Cruz, now being transitioned to Warfarin with Lovenox bridge. US indicative on continued extensive DVT, patient is not able to ambulate or really be upright for any extended period of time, thus will continue to be treated for at least another evening. Acute left lower extremity DVT, POA, acute. active -Warm, edematous, ultrasound proven DVT. -DVT seems to be unprovoked. Etiologies include venous stasis from laying on the floor, chronic smoking, and concern for cancer. -Heparin drip -Discussed with Dr. Cruz, who conducted EKOS on 09/25/16 with subsequent venogram -2V CXR unremarkable -Pain management with Vicodin, hydromorphone IV every 3 hours for breakthrough pain -Transition to Warfarin with Lovenox bridge -Monitor for abrupt SOB and or CP, other signs of embolization. -Unfortunately the patient cannot have a hypercoagulable workup as he has already received Heparin -There is no literature evidence that panscanning to look for cancer is superior to age appropriate cancer screening for unprovoked DVT. -PCP may consider doing a hypercoagulable workup and panscanning as an outpatient given extensive family history of cancer. Chronic insomnia, POA active -Continue home medication of hydroxyzine 50 mg daily at bedtime when necessary Chronic tobacco abuse, POA active -Imperative patient quits smoking given unprovoked DVT -Tobacco cessation education -Nicotine patch Disposition: Anticipate DC home tomorrow with no needs, will need extensive outpatient workup including hypercoaguable workup. Pain Evaluation: Adequate Pain Control GI Prophylaxis: Not indicated VTE Prophylaxis: Sub-Q Enoxaparin Resuscitation Status: CPR: Attempt Resuscitation Attending Statement The patient was seen and examined together with Dr. Freitas on 09/28/2016 and I agree with the history, exam and plan as outlined in the note above. . Damaso Freitas DO Sep 27, 2016 16:41 Gerry Holder MD Sep 28, 2016 19:09
--- NOTE | 2016-09-27 17:44 | NUR ---
Pain/Ambulation No reports of chest pain/pressure/discomfort. Tele SR 70s-80s. No reports of SOB/dizziness. SPO2 on RA high 90s. Denies cough. No reports of n/v/d/c or abdominal pain. Using urinal independently, voiding without complication. Last documented BM is on 09/24. Alert and oriented x3, ZELAYA, reports full sensation. Moderate decrease in strength r/t pain in left LE. Pre-medicated patient with two tabs Hydrocodone approx 30 minutes prior to working with PT. Patient stated that the pain medicine decreased his pain until he worked with PT (per PT, very difficult and painful for patient) and pain then returned to 7/10. Reported 5-7/10 pain throughout the entire shift.
[2016-09-27 20:19] VITALS: BP 124/81; PULSE 55; RESP 20; O2SAT 96
[2016-09-28 03:08] VITALS: BP 127/75; PULSE 54; RESP 22; O2SAT 98
[2016-09-28 03:16] LABS: BASOPHILS % (AUTO) 0.3 % (0-3); EOSINOPHILS % (AUTO) 2.7 % (0-5); MONOCYTES % (AUTO) 14.5 % (4-12); Mean Corpuscular Hemoglobin 31.1 pg (27.0-35.0); Mean Corpuscular Volume 90.6 fL (81-100); NEUTROPHILS % (AUTO) 55.3 % (40-74); Platelet Count 239 bil/L (150-400)
[2016-09-28 03:32] LABS: INR 0.94 ratio
[2016-09-28 03:41] LABS: Magnesium 1.9 mg/dL (1.6-2.6); Phosphorus 4.6 mg/dL (2.5-4.9)
[2016-09-28 07:58] VITALS: BP 111/49; PULSE 79; RESP 16; O2SAT 96
[2016-09-28] MEDS ORDERED: HYDROcodone-APAP 5-325 mg Tablet PO PRN (08:30)
[2016-09-28] MEDS ORDERED: OXYC5TAB72 PO (09:55)
[2016-09-28] MEDS ORDERED: FAMO20T PO (09:55)
[2016-09-28] MEDS ORDERED: LOV120 SUBQ (09:55)
--- NOTE | 2016-09-28 10:17 | PCM.PHAPRO ---
Progress Date of Service: Sep 28, 2016 Warfarin dosing INR = 0.94, hct=46.3, jbtb=411. Pt continues on enoxaparin subcut 1mg/kg q12h & warfarin for DVT. INR subtherapeutic today, goal 2-3. Will give another warfarin 7.5 mg PO tonight. INRs are ordered. Pharmacy will follow pt's warfarin therapy. Date -Sep 28-Sep INR 0.99 0.94 INR change -0.05 Warf Dose 7.5mg 7.5mg Montserrat Campos S PharmD Sep 28, 2016 10:17
[2016-09-28] MEDS ORDERED: WARF5TAB7 PO (11:59)
[2016-09-28] MEDS ORDERED: CRUT1EAC36 MC (12:00)
[2016-09-28] MEDS ORDERED: CRUT1EAC MC (12:00)
--- NOTE | 2016-09-28 12:09 | PCM.DIMED ---
Damián Palmer DO 09/28/16 1209: Discharge Instructions Date of Service Sep 28, 2016 Dates of Hospitalization Sep 24, 2016 at 19:22 Discharge Diagnosis Discharge Diagnosis Acute left lower extremity DVT Chronic insomnia Chronic tobacco abuse Medication Instructions Additional med instructions Warfarin 5mg taken by mouth in the evenings. Lovenox injections every 12 hours until therapeutic on warfarin Famotidine 40mg taken once daily Oxycodone 5-325 for pain as needed up to every 4-6 hours Diet Discharge Diet: No restrictions Activity Discharge Activity: Other (up and moving) Call your provider Call your provider for: Shortness of breath, Chest pain Patient Instructions Patient Instructions You were admitted due to a blood clot in your lower leg. This is highly unusual for someone as young as you are. The treatment for this is to thin your blood using warfarin. This drug takes time to take full effect and you will need to use the Enoxaparin (Lovenox) injections until your are at a therapeutic level of warfain. To determine when you reach this goal you will need bloodwork. Please follow-up in the INR clinic tomorrow for bloodwork. Follow-up plan INR clinic tomorrow for INR check Follow-up Provider: Irma Devlin MD Follow-up with PCP in: 1 week Mid-level Provider (F9): [facility] Gerry Holder MD 09/28/16 1910: Discharge Instructions Attending's Statement The patient was seen and examined together with Dr. Palmer on 09/28/2016 and I agree with the history, exam and plan as outlined in the note above. . Damián Palmer DO Sep 28, 2016 12:09 Gerry Holder MD Sep 28, 2016 19:10
--- NOTE | 2016-09-28 13:53 | NUR ---
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 IV DC'd intact, no tele to remove, all personal belongings with patient. Patient has paper prescriptions for: Warfarin, Lovenox, Famotidine, Oxycodone (discussed next due times for all medications) as well as a paper prescription for 2 crutches. Called multiple pharmacies in [place] to verify that lovenox injections were in stock. 120mg syringes in stock at [facility] on [address] [facility] [address], although this is not the patient's preferred pharmacy. [facility] does not carry crutches, patient and family aware they will need to pick those up at [facility]. Patient demonstrated Lovenox injection with a self administration at 0830, discussed alternating abdominal sites with each injection -- patient verbalized understanding. Discussed next due doses of all medications, including taking lovenox and warfarin tonight and the importance of taking these medications as prescribed-- patient and family verbalized understanding. Discussed smoking cessation. Patient and family verbalized understanding that patient will need to return to coagulation clinic tomorrow to check INR level. 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 Dr. Porter evaluated per family request, does not appear to be infected, encouraged to keep clean and dry and follow up with PCP.
--- NOTE | 2016-09-28 17:03 | NUR ---
Social Work Note: Discharge Data& Assessment: Per pt is medically improved and ready for discharge. Luis Lozano is a 21 year old male admitted on 09/24/2016 for DVT. Pt ambulation is improved today with RN and MD does not believe pt would require Home Health. SW did discuss Home Health potential with pt and pt mother per previous PT recommendations from the day before. Pt declined. Pt mother did have concerns with pt medical readiness. notified and met with pt mother at bedside. Pt mother denies any other needs. No other discharge needs identified. Plan: Per pt is medically ready to discharge home via POV. Pt and Pt mother denies any other needs. No other discharge needs identified. HUYEN Fuentes
--- NOTE | 2016-09-29 08:07 | PCM.DC.MED ---
Discharge Summary Date of Service Sep 29, 2016 Dates of Hospitalization Date of Hospital Admission Sep 24, 2016 at 19:22 Date of Discharge: Sep 28, 2016 Providers: Admitting Physician: Gerry Holder MD Primary Care Physician: Irma Devlin MD Attending Physician: Gerry Holder MD Diagnosis at Time of Discharge Diagnosis at Time of Discharge Acute left lower extremity DVT Chronic insomnia Chronic tobacco abuse Procedures XRay, CTs & MRIs Left lower extremity duplex ultrasound, performed 09/24/2016 IMPRESSION: Extensive deep venous thrombosis in the left lower extremity. Dictated by: Florence Michaels M.D. on 09/24/2016 at 16:16 VEINOUS LEG DUPLEX UNILATERAL, LEFT IMPRESSION: No significant interval change in extensive left lower extremity deep venous thrombosis, involving the popliteal and superficial femoral veins, but not the common femoral vein. Dictated by: Quoc Eaton M.D. on 09/27/2016 at 15:18 Approved by: Quoc Eaton M.D. on 09/27/2016 at 15:23 . Brief History Luis Milner is a 21-year-old gentleman presents with left lower extremity pain started 4 days ago, started to cramp in his left lower extremity after sleeping on the floor 1 night. Pain got progressively worse until today when he got out of bed and said he was not able to bear any weight. He used a cane to ambulate today before and in the emergency department. He's currently every day smoker for 30 years, drinks 2 beers a night no previous surgeries there is family history of breast and cervical cancer on his mom's side denies any known medical problems on his father's side, no history of blood clots in the family were previously. States he was treated for pneumonia about a year ago and developed hemoptysis at the time was treated as an outpatient but described as brandon blood. He was told he is also a follow-up x-ray to evaluate for evolution of opacity that was seen at that time which he never did. He denies any fevers chills, lightheadedness dizziness, chest pain, shortness of breath, dysuria, constipation diarrhea or nausea, no history of the same, only symptom at this time is pain to his left posterior tibial region. On presentation 36.6C 84, 18, 133/84, 98% on room air WBC 15.2, 15% monocytes, CMP unremarkable, INR 0.99 Venous ultrasound of his leg showed extensive deep venous thrombosis. Case was discussed with interventional radiologist Dr. Rodriguez, rail setter Dr. Valiente and Dr. Cruz, ultimately the consensus was Dr. Cruz will see the patient in the hospital tomorrow and evaluate for response to heparin therapy. Patient was started on heparin drip and admitted for acute DVT. Hospital Course 21-year-old male every day smoker, history of suspicious opacity on x-ray, presents with left lower extremity pain evaluation showed diffuse DVT, taken for EKOS per Dr. Cruz, now being transitioned to Warfarin with Lovenox bridge. US indicative on continued extensive DVT, patient is not able to ambulate or really be upright for any extended period of time, thus will continue to be treated for at least another evening. Acute left lower extremity DVT, POA, acute. active -Warm, edematous, ultrasound proven DVT. -DVT seems to be unprovoked. Etiologies include venous stasis from laying on the floor, chronic smoking, and concern for cancer. -Tx with Heparin drip -Discussed with Dr. Cruz, who conducted EKOS on 09/25/16 with subsequent venogram -2V CXR unremarkable -Pain management with Vicodin, hydromorphone IV every 3 hours for breakthrough pain -Transition to Warfarin with Lovenox bridge -PCP may consider doing a hypercoagulable workup -PATIENT DISCHARGED WITH OXYCODONE 5-325 #45 FOR PAIN AND INSTRUCTED ON USE AND DANGERS OF ABUSE Chronic insomnia, POA active -Continue home medication of hydroxyzine 50 mg daily at bedtime when necessary Chronic tobacco abuse, POA active -Imperative patient quits smoking given unprovoked DVT -Tobacco cessation education -Nicotine patch DISCHARGE: PT WAS DISCHARGED IN STABLE AND GREATLY IMPROVED CONDITION WITH UNDERSTANDING OF HIS DISEASE, COURSE OF TREATMENT, AND ONGOING MEDICAL FOLLOW- UP. PATIENT WAS INSTRUCTED THAT HE WILL NEED FUTURE FULL CLOTTING WORK-UP AFTER HE IS OFF OF WARFARIN AND THAT THIS WILL BE DONE BY HIS PRIMARY CARE PROVIDER OR HEMATOLOGY REFERRAL. ALL QUESTIONS WERE ANSWERED PRIOR TO DISCHARGE WELL PHYSICAL THERAPY EVALUATION AND RECOMMENDATION TO FAMILY. Exam Vital Signs (Last) Date Time Temp Pulse Resp B/P Pulse Ox O2 Delivery O2 Flow Rate FiO2 09/28/16 07:58 36.8 79 16 111/49 96 Room Air 09/26/16 03:31 2.00 Exam Gen: A/O x3 pleasant; NAD Neck: Supple HEENT: PERRL, EOMI, no scleral icterus, No conjunctival pallor CV: RRR, no murmurs rubs or gallops Resp: CTA BL, no wheezing rales or rhonchi Abd: Soft, non tender, no organomegaly, no rebound or guarding Extr: tenderness to palpation in popliteal fossa Neuro: CN 2-12 grossly intact, no focal neurologic deficit. Psych: appropriate mood and affect Test 09/25/16 06:00 09/27/16 18:48 09/28/16 03:05 Erythrocyte Sedimentation Rate 2mm/hr (0-15) Activated Partial Thromboplast Time 27.8sec (22.8-33.0) Fibrinogen 375mg/dL (157-380) White Blood Count 10.4th/mm3 (3.8-10.1) Red Blood Count 5.11mil/mm3 (4.40-5.80) Hemoglobin 15.9g/dL (13.8-17.2) Hematocrit 46.3% (41.0-50.0) Mean Corpuscular Volume 90.6fL (81-100) Mean Corpuscular Hemoglobin 31.1pg (27.0-35.0) Mean Corpuscular Hemoglobin Concent 34.3% (32.0-37.0) Red Cell Distribution Width 12.4% (12.3-15.4) Platelet Count 239bil/L (150-400) Neutrophils (%) (Auto) 55.3% (40-74) Lymphocytes (%) (Auto) 27.0% (14-46) Monocytes (%) (Auto) 14.5% (4-12) Eosinophils (%) (Auto) 2.7% (0-5) Basophils (%) (Auto) 0.3% (0-3) Prothrombin Time 10.0sec (8.1-12.5) Prothromb Time International Ratio 0.94ratio Sodium Level 138mEq/L (134-144) Potassium Level 4.5mEq/L (3.5-5.2) Chloride Level 103mEq/L (97-108) Carbon Dioxide Level 19mmol/L (18-29) Blood Urea Nitrogen 13mg/dL (6-20) Creatinine 0.55mg/dL (0.76-1.27) Estimat Glomerular Filtration Rate 200mL/min (>59) Glucose Level 108mg/dL (60-99) Calcium Level 9.7mg/dL (8.5-10.1) Phosphorus Level 4.6mg/dL (2.5-4.9) Magnesium Level 1.9mg/dL (1.6-2.6) Total Bilirubin 0.3mg/dL (0.0-1.2) Aspartate Amino Transf (AST/SGOT) 56U/L (0-50) Alanine Aminotransferase (ALT/SGPT) 48U/L (0-44) Alkaline Phosphatase 92U/L (25-150) Total Protein 7.4g/dL (6.4-8.4) Albumin 3.6g/dL (3.4-5.0) Discharge Medications Discharge Medications Enoxaparin (Lovenox) 120 Mg/0.8 Ml Syringe 120 MG SUBQ Q12H Prescribed by: AVLA RANDALL DO Famotidine (Pepcid) 20 Mg Tablet 40 MG PO DAILY Prescribed by: ALVA RANDALL DO Warfarin Sodium (Warfarin Sodium) 5 Mg Tablet 5 MG PO QPM Prescribed by: ALVA RANDALL DO As needed Hydroxyzine HCl (HydrOXYzine Hcl) 50 Mg Tablet 50 MG PO HS PRN PRN For Insomnia (Reported) oxyCODONE (oxyCODONE) 5 Mg Tablet 5 MG PO Q4H PRN PRN For Pain Prescribed by: ALVA RANDALL DO Durable Medical Equipment Crutch (Crutch) 1 Each Each 1 EACH [facility] (DME) Prescribed by: ALVA RANDALL DO Crutch Accessories (Crutch Tip) 1 Each Each 1 EACH [facility] (DME) Prescribed by: ALVA RANDALL DO Additional med instructions Warfarin 5mg taken by mouth in the evenings. Lovenox injections every 12 hours until therapeutic on warfarin Famotidine 40mg taken once daily Oxycodone 5-325 for pain as needed up to every 4-6 hours Followup Plan Follow-up plan INR clinic tomorrow for INR check Discharge Diet: No restrictions Discharge Activity: Other (up and moving) Patient Instructions You were admitted due to a blood clot in your lower leg. This is highly unusual for someone as young as you are. The treatment for this is to thin your blood using warfarin. This drug takes time to take full effect and you will need to use the Enoxaparin (Lovenox) injections until your are at a therapeutic level of warfain. To determine when you reach this goal you will need bloodwork. Please follow-up in the INR clinic tomorrow for bloodwork. Follow-up Provider: Irma Devlin MD Follow-up with PCP in: 1 week Mid-level Provider: CARLITOS LANGE Time spent Greater than 30 minutes was spent in preparation of discharge with greater than 50% of that time dedicated to patient counseling and coordination of care. . Attending Statement The patient was seen and examined together with Dr. Randall on 09/28/2016 and I agree with the history, exam and plan as outlined in the note above. . copies to: Irma Devlin MD, Michael R DO Sep 29, 2016 08:07 Gerry Holder MD Oct 01, 2016 18:25
== END 2016-09-28 14:10 | disposition home or self-care (01) | DRG 301 ==
LOC: SED 12:57 → MOC 19:22 → OBSVTOIN 19:22 → CCU 09-25 17:12 → PCC 09-26 16:46
PROVIDERS: ADMIT Internal Medicine; ATTEND Internal Medicine
PROC: 3E03317 Introduction of Other Thrombolytic into Peripheral Vein, Percutaneous Approach (ICD-10-PCS; principal; 2016-09-25)
PROC: B54CZZZ Ultrasonography of Left Lower Extremity Veins (ICD-10-PCS; 2016-09-25)
DX: I82.412 Acute embolism and thrombosis of left femoral vein (principal); F17.210 Nicotine dependence, cigarettes, uncomplicated; I82.432 Acute embolism and thrombosis of left popliteal vein; G47.00 Insomnia, unspecified

== ENCOUNTER 2016-11-04 20:03 | Inpatient (IN) | payer OTHER ==
[~2016-11-04] VITALS: Ht 182.9 cm; Wt 110.5 kg
[2016-11-04] MEDS: 0.9% Sodium Chloride 1,000 ML IV SCH
[~2016-11-04 20:03] MED LIST: CRUT1EAC MC; CRUT1EAC36 MC; FAMO20T PO; HYDR50TA76 PO; LOV120 SUBQ; OXYC5TAB72 PO; WARF5TAB7 PO
[2016-11-04 20:13] VITALS: BP 127/71; PULSE 82; RESP 16; O2SAT 97
--- NOTE | 2016-11-04 21:07 | ED.REPORT ---
HPI-Extremity Problem Lower Date of Service Nov 04, 2016 ED Provider: Dr. Wray Pt is a generally healthy 21 y/o male w/ a hx of recent occlusive LLE DVT presenting to the ED c/o LLE redness, swelling, and pain onset today. The patient was seen in the ED at [facility] on September 24 for LLE leg swelling and pain after 2 long periods of immobilization with recent long car trips and was found to have an occlusive LLE DVT. During the admission, Dr. Cruz performed an EKOS procedure. He was discharged on 09/28 with plan for transition to Warfarin with Lovenox bridge. He states this pain is similar to his previous presentation with DVT. His outpatient INR today was reportedly 1.4. He has been taking 15 mg warfarin daily. Hospital D/C medications as below: Warfarin 5mg taken by mouth in the evenings. Lovenox injections every 12 hours until therapeutic on warfarin Famotidine 40mg taken once daily Oxycodone 5-325 for pain as needed up to every 4-6 hours Nursing Notes Stated Complaint: DVT/SWELLING REDNESS Chief Complaint: Extremity Trauma Nursing Notes Reviewed: Yes Allergies: Coded Allergies: clarithromycin (Verified Allergy, Unknown, 11/04/16) Scheduled Enoxaparin (Lovenox) 120 Mg/0.8 Ml Syringe 120 MG SUBQ Q12H Famotidine (Pepcid) 20 Mg Tablet 40 MG PO DAILY Warfarin Sodium (Warfarin Sodium) 5 Mg Tablet 5 MG PO QPM Scheduled PRN Hydroxyzine HCl (HydrOXYzine Hcl) 50 Mg Tablet 50 MG PO HS PRN PRN For Insomnia oxyCODONE (oxyCODONE) 5 Mg Tablet 5 MG PO Q4H PRN PRN For Pain General Time Seen by MD: 21:08 Chief Complaint Other (LLE pain and swelling) Hx Obtained From: Patient Arrived By: Walk-in Location: : Leg left Quality: Painful Severity: Current: Severe Severity: Maximum: Severe Recent Healthcare: Previous diagnosis Similar Sx Previous: Yes Past Medical History Past Medical History Hx DVT LLE - September 24 2016 discharged on Lovenox bridge to Warfarin Hx pneumonia with pneumothorax Past Surgical History Denies Family History Mother LSIL, breast cancer on her side Biological father denies any known medical problems Smoking History Current Every Day Smoker Social History Alcohol Use: "Social" Drug Use: Denies drug use Other Social History: Good social support Ambulatory Status Independent Review of Systems Constitutional: Denies: Chills, Fever Musculoskeletal: Reports: Extremity pain, Extremity swelling Complete sys rev & neg: except as marked. Respiratory: Denies: Shortness of breath Cardiovascular: Denies: Chest pain Physical Exam Initial Vital Signs Vital Signs (First) Date Time Temp Pulse Resp B/P Pulse Ox O2 Delivery O2 Flow Rate FiO2 11/04/16 20:13 36.6 82 16 127/71 97 Room Air Initial VS: Reviewed, Vital signs normal Head / Eyes: Atraumatic, Normocephalic, PERRL ENT: Mucous membranes moist, Conjunctiva normal, No scleral icterus Neck: Supple, Full range of motion Respiratory: Breath sounds normal, Clear to auscultation, No respiratory distress Cardiovascular: Regular rate & rhythm, Heart sounds normal, Intact distal pulses Upper Extremities: Vascular intact, Neuro intact, No swelling Skin: Warm, Dry, No cyanosis Neurologic: Alert, Oriented, Nonfocal Psychiatric: Mood/affect normal, Behavior normal, Normal thought content Lower Extremity / Pelvis / MS: Atraumatic, No deformity, Neurologic intact, Vascular intact LLE: Several linear areas of erythema about the left calf and ankle area Marked edema of the left leg compared to right. Swelling and tenderness of the medial thigh Ankle / Foot: No deformity, Neurologic intact, Vascular intact General/Constitutional: Awake, Alert, No acute distress, Cooperative, Not toxic appearing Appearance / Presentation: Positive: In pain, Uncomfortable Interpretation & Diagnostics Lab Results Interpretation Result Diagram: 11/04/16213711/04/162137 Test 11/04/16 21:38 White Blood Count 10.6th/mm3 (3.8-10.1) Red Blood Count 5.10mil/mm3 (4.40-5.80) Hemoglobin 15.8g/dL (13.8-17.2) Hematocrit 45.6% (41.0-50.0) Mean Corpuscular Volume 89.4fL (81-100) Mean Corpuscular Hemoglobin 31.0pg (27.0-35.0) Mean Corpuscular Hemoglobin Concent 34.6% (32.0-37.0) Red Cell Distribution Width 13.3% (12.3-15.4) Platelet Count 226bil/L (150-400) Neutrophils (%) (Auto) 58.9% (40-74) Lymphocytes (%) (Auto) 24.9% (14-46) Monocytes (%) (Auto) 12.7% (4-12) Eosinophils (%) (Auto) 3.1% (0-5) Basophils (%) (Auto) 0.2% (0-3) Prothrombin Time 13.8sec (8.1-12.5) Prothromb Time International Ratio 1.28ratio Sodium Level 138mEq/L (134-144) Potassium Level 4.1mEq/L (3.5-5.2) Chloride Level 102mEq/L (97-108) Carbon Dioxide Level 19mmol/L (18-29) Blood Urea Nitrogen 11mg/dL (6-20) Creatinine 0.62mg/dL (0.76-1.27) Estimat Glomerular Filtration Rate 174mL/min (>59) Glucose Level 90mg/dL (60-99) Calcium Level 9.3mg/dL (8.5-10.1) Magnesium Level 1.9mg/dL (1.6-2.6) Total Bilirubin 0.5mg/dL (0.0-1.2) Aspartate Amino Transf (AST/SGOT) 16U/L (0-50) Alanine Aminotransferase (ALT/SGPT) 16U/L (0-44) Alkaline Phosphatase 78U/L (25-150) Total Protein 7.4g/dL (6.4-8.4) Albumin 4.1g/dL (3.4-5.0) Hold Browne Top Tube Received (Received) Lab Results Interpretation: Subtherapeutic INR US Focused Lower Ext Venous IMPRESSION: A combination of occlusive and nonocclusive DVT is found within the left lower extremity venous system, as discussed above. Dictated by: Ok Kenney M.D. on 11/04/2016 at 21:47 Approved by: Ok Kenney M.D. on 11/04/2016 at 21:49 Exam Performed by: [facility] pract Exam Type: Diagnostic Exam Interpreted by: ED physician Re-Eval/Medical Decision Med Decision/Clinical Course 21-year-old male with a history of recent DVT on Coumadin presents with left lower extremity pain and swelling. His INR is subtherapeutic. His ultrasound shows extensive DVT in the femoral vein system. He was given a dose of Lovenox and will be admitted to the hospital per Dr. Mari. Source of Hx: Old records Re-Evaluation/Progress : Time of Eval: 22:27 Re-Evaluation/Progress Note: Pt rechecked. Informed pt of need for admission. Pt understands and agrees with plan for admission. All questions addressed. Consultation : Referral / Consult Name: Rush Mari MD Consulted With: Hospitalist Call Returned at: 22:28 Drying Can Worker: Will see patient, Agrees with eval, Agrees with plan, Accepts admit Counseled Regarding: Diagnosis, Lab results, Need for admission Discharge & Departure Impression: Primary Impression: Deep vein thrombosis (DVT) of left lower extremity Affected thrombotic vein of extremity: unspecified vein of extremity Chronicity: acute Qualified Code: I82.402 - Acute embolism and thrombosis of unspecified deep veins of left lower extremity Additional Impression: Subtherapeutic international normalized ratio (INR) Disposition: ADMITTED TO HOSPITAL Discharge Condition All VS Reviewed: Yes Condition: Improved Referrals: Irma Devlin MD (PCP) Jesu Cruz MD Scribe Attestation Portions of this note were transcribed by Xavi Almazan. I, Dr. Wray personally performed the history, physical exam and medical decision-making; I reviewed and confirmed the accuracy of the information in the transcribed note. copies to: Irma Devlin MD; Jesu Cruz MD, Howard L MD Nov 04, 2016 21:06 XAVI ALMAZAN Nov 04, 2016 21:14
[2016-11-04] MEDS ORDERED: HYDROmorphone 1 mg/mL Inj IM ONE (21:15)
[2016-11-04 21:41] LABS: BASOPHILS % (AUTO) 0.2 % (0-3); EOSINOPHILS % (AUTO) 3.1 % (0-5); MONOCYTES % (AUTO) 12.7 % (4-12); Mean Corpuscular Volume 89.4 fL (81-100); NEUTROPHILS % (AUTO) 58.9 % (40-74); Platelet Count 226 bil/L (150-400)
--- NOTE | 2016-11-04 21:51 | DRSVH ---
PROCEDURE: US VEINOUS LEG DUPLEX UNILATERAL, LEFT INDICATIONS: eval DVT TECHNIQUE: Real-time imaging, as well as color and pulse Doppler interrogation, were performed of the lower extr emity deep veins from the inguinal ligament to the popliteal fossa. COMPARISON: [facility], US, US VENOUS LEG DPLX UNI LT, 09/27/2016, 14:24. FINDINGS within the left lower extremity deep venous system there is deep venous thrombosis involving the common femoral vein extending into the superficial femoral vein and to the upper margin of the p opliteal vein. It is nonocclusive in the common femoral vein and the superficial femoral vein proxim ally but is occlusive in the mid to distal superficial femoral vein and at the popliteal vein junctio n. IMPRESSION: A combination of occlusive and nonocclusive DVT is found within the left lower extremity venous system, as discussed above. Dictated by: Ok Kenney M.D. on 11/04/2016 at 21:47 Approved by: Ok Kenney M.D. on 11/04/2016 at 21:49
[2016-11-04 22:03] LABS: INR 1.28 ratio
[2016-11-04 22:05] LABS: Magnesium 1.9 mg/dL (1.6-2.6)
[2016-11-04 22:14] VITALS: BP 116/66; PULSE 42; RESP 20; O2SAT 99
[2016-11-04] MEDS ORDERED: Alum-Mag Hydrox-Simeth 30 mL Suspension PO PRN (22:35)
[2016-11-04] MEDS ORDERED: Ondansetron 2 mg/mL 2 mL Inj IVPUSH PRN (22:35)
[2016-11-04] MEDS ORDERED: Polyethylene Glycol (PEG) 17 Gm Powder PO PRN (22:35)
[2016-11-04] MEDS ORDERED: Heparin Protocol Boluses IVPUSH PRN (22:45)
--- NOTE | 2016-11-04 22:51 | PCM.HPMED ---
Subjective Date of Service Nov 04, 2016 Primary Provider: Admitting Physician: Primary Care Physician: Irma Devlin MD Attending Physician: Admit Status: From the Emergency Department, Full Admit, Remote Telemetry Chief Complaint: Left leg swelling and pain History of Present Illness: Luis Saeed is a 21 yo male with recent diagnosis of DVT and currently on Coumadin presenting to [facility] emergency department c/o Left leg redness, swelling, and pain onset today. Patient has reported missing his Coumadin for 5 days because he jus forgot. He reported taking the Lovenox until his doctor told him to stop because INR was 2.0. He has complained of increasing left leg pain, similar to his previous complaint when he was diagnosed with DVT. Pain 8/10 intensity without any radiation. Exacerbated with left leg movement. Denies any pleuritic chest pain or dyspnea. The patient was admitted 09/24/16 for Left leg swelling and pain after 2 long periods of immobilization with recent long car trips and was found to have an occlusive LLE DVT. Mother reported no family history of thrombotic disease During the admission, Dr. Cruz performed an EKOS procedure without any complications. He was discharged on 09/28 with plan for transition to Warfarin with Lovenox bridge. Case discussed with Dr Wray, Ultrasound showed persistent DVT. Heparin drip started with plans to admit Review of Systems: Pertinent positives as noted in HPI. All other systems were reviewed and are negative Allergies Coded Allergies: clarithromycin (Verified Allergy, Unknown, 11/05/16) Home Medications From recent Discharge Summary, not yet confirmed Enoxaparin (Lovenox) 120 Mg/0.8 Ml Syringe 120 MG SUBQ Q12H Prescribed by: ALVA RANDALL DO Famotidine (Pepcid) 20 Mg Tablet 40 MG PO DAILY Prescribed by: ALVA RANDALL DO Warfarin Sodium (Warfarin Sodium) 5 Mg Tablet 5 MG PO QPM Prescribed by: ALVA RANDALL DO As needed Hydroxyzine HCl (HydrOXYzine Hcl) 50 Mg Tablet 50 MG PO HS PRN PRN For Insomnia (Reported) oxyCODONE (oxyCODONE) 5 Mg Tablet 5 MG PO Q4H PRN PRN For Pain Prescribed by: ALVA RANDALL DO Durable Medical Equipment Crutch (Crutch) 1 Each Each 1 EACH [facility] (DME) Prescribed by: ALVA RANDALL DO Crutch Accessories (Crutch Tip) 1 Each Each 1 EACH [facility] (DME) Prescribed by: ALVA RANDLAL DO Additional med instructions Warfarin 5mg taken by mouth in the evenings. Lovenox injections every 12 hours until therapeutic on warfarin Famotidine 40mg taken once daily Oxycodone 5-325 for pain as needed up to every 4-6 hours PMH Insomnia Allergies Obesity Tobacco abuse Marijuana abuse History of hemoptysis with uncertain etiology . Surgical History denies any surgeries Family History Mother LSIL, breast cancer on her side Biological father denies any known medical problems. Social History Hx Alcohol Use: Yes (No so much recently) Hx Substance Use: No Hx Tobacco Use: Yes Smoking Status: Current Every Day Smoker Living Arrangement: with Family Exam Vital Signs Vital Sign - Last Date Time Temp Pulse Resp B/P Pulse Ox O2 Delivery O2 Flow Rate FiO2 11/04/16 22:14 42 20 116/66 99 Room Air 11/04/16 20:13 36.6 Exam General: Alert, Oriented X3, Cooperative, No acute Distress Eyes: PERRLA, Scleral Anicteric Mouth: Mouth Normal, Mucous Membranes Moist/[facility] [place] Neck: Supple, no Thyromegaly, trachea central. Chest & Lungs: Clear to auscultation & percussion, No adventitious breath sounds, no crackles, no wheeze Cardiovascular: Normal S1, Normal S2, No Murmurs/Rubs/Gallops, Regular Rate/ Rhythm, (No JVD, no peripheral edema) Pulses: Radial (present and equal), Dorsalis Pedi (present and equal) Abdomen: Soft, Non-tender, Non-distended, Normoactive bowel tones. Musculoskeletal: Unremarkable. Normal range of motion, no swollen or erythematous joints Extremities: Several linear areas of erythema about the left calf and ankle area. Marked edema of the left leg compared to right. Swelling and tenderness of the medial thigh Skin: No rashes. Warm and dry, no erythematous areas Neurological: Grossly neurologically intact, Normal Speech, Sensation Intact Lymphatic: Lymph nodes Cervical and Axillary not palpable. Lab and Diagnostics Labs Laboratory Tests Test 11/04/16 21:38 White Blood Count 10.6th/mm3 (3.8-10.1) Red Blood Count 5.10mil/mm3 (4.40-5.80) Hemoglobin 15.8g/dL (13.8-17.2) Hematocrit 45.6% (41.0-50.0) Mean Corpuscular Volume 89.4fL (81-100) Mean Corpuscular Hemoglobin 31.0pg (27.0-35.0) Mean Corpuscular Hemoglobin Concent 34.6% (32.0-37.0) Red Cell Distribution Width 13.3% (12.3-15.4) Platelet Count 226bil/L (150-400) Neutrophils (%) (Auto) 58.9% (40-74) Lymphocytes (%) (Auto) 24.9% (14-46) Monocytes (%) (Auto) 12.7% (4-12) Eosinophils (%) (Auto) 3.1% (0-5) Basophils (%) (Auto) 0.2% (0-3) Prothrombin Time 13.8sec (8.1-12.5) Prothromb Time International Ratio 1.28ratio Sodium Level 138mEq/L (134-144) Potassium Level 4.1mEq/L (3.5-5.2) Chloride Level 102mEq/L (97-108) Carbon Dioxide Level 19mmol/L (18-29) Blood Urea Nitrogen 11mg/dL (6-20) Creatinine 0.62mg/dL (0.76-1.27) Estimat Glomerular Filtration Rate 174mL/min (>59) Glucose Level 90mg/dL (60-99) Calcium Level 9.3mg/dL (8.5-10.1) Magnesium Level 1.9mg/dL (1.6-2.6) Total Bilirubin 0.5mg/dL (0.0-1.2) Aspartate Amino Transf (AST/SGOT) 16U/L (0-50) Alanine Aminotransferase (ALT/SGPT) 16U/L (0-44) Alkaline Phosphatase 78U/L (25-150) Total Protein 7.4g/dL (6.4-8.4) Albumin 4.1g/dL (3.4-5.0) Hold Browne Top Tube Received (Received) Result Diagram: 11/04/16213711/04/162137 X-Rays, CTs and MRIs US VEINOUS LEG DUPLEX UNILATERAL, LEFT 11/04 FINDINGS within the left lower extremity deep venous system there is deep venous thrombosis involving the common femoral vein extending into the superficial femoral vein and to the upper margin of the popliteal vein. It is nonocclusive in the common femoral vein and the superficial femoral vein proximally but is occlusive in the mid to distal superficial femoral vein and at the popliteal vein junction. IMPRESSION: A combination of occlusive and nonocclusive DVT is found within the left lower extremity venous system, as discussed above. Dictated by: Ok Kenney M.D. on 11/04/2016 at 21:47 Approved by: Ok Kenney M.D. on 11/04/2016 at 21:49 Assessment & Plan Luis Seaed is a 21 yo male with recent diagnosis of DVT and currently on Coumadin presenting to [facility] emergency department c/o Left leg redness, swelling, and pain 1. Recurrent left lower extremity Deep Vein thrombosis. Present on admission Likely due to non compliance with Coumadin of possible failed Coumadin treatment. Workup from last admission reviewed. Consensus was that the event was unprovoked. Unfortunately the patient cannot have a hypercoagulable workup as he is on Coumadin - s/p EKOS 09/25/16 with subsequent venogram - Heparin drip initiated - patient may need IVC filter placement - consider Eliquis or Pradaxa as possible alternative - recommend Hematology input concerning treatment option (day team to contact) - Pain management with Vicodin, hydromorphone 1 mg IV as needed for breakthrough pain 2 Chronic insomnia - continue Hydroxyzine 50 mg daily at bedtime when necessary 3 Nicotine dependence Tobacco cessation discussed and encouraged - Nicotine patch upon request - Acetaminophen as needed for mild pain/fever/headache - Bowel regimen as needed - Antiemetic as needed Patient admitted under inpatient status with expected length of stay > 2 midnights for severity of present symptoms, complexities of treatment plan and risk for adverse event . Resuscitation Status: CPR: Attempt Resuscitation Rush Mari MD Nov 04, 2016 22:43
[2016-11-04] MEDS ORDERED: WARF5TAB7 PO (23:03)
[2016-11-04] MEDS ORDERED: KEN1O TOP (23:03)
[2016-11-04] MEDS ORDERED: HYDR-3797 PO (23:04)
[2016-11-04] MEDS ORDERED: HYDROmorphone 1 mg/mL Inj IVPUSH PRN (23:15)
[2016-11-05] VITALS (7 sets, daily range): BP systolic 106–119; BP diastolic 46–67; PULSE 59–79; RESP 16–17; O2SAT 95–98
[2016-11-05] MEDS: Heparin 25K Unit/500mL 0.45 NS 25,000 UNIT in IV Premix 1 EACH IV SCH ×2 (00:19→12:41)
--- NOTE | 2016-11-05 06:20 | NUR ---
P) Admit Pt. admitted in ER overflow bed at 0000, L leg very swollen and red and painful, unable to put weight on it. I) Meds per 's orders, dilaudid working for pain. E) Resting quietly , mother in attendance.
[2016-11-05] MEDS: 0.9% Sodium Chloride 1,000 ML IV SCH ×2 (09:13→16:15)
[2016-11-05] MEDS: HYDROmorphone 1 mg/mL Inj IVPUSH PRN ×6 (09:13→22:18)
--- NOTE | 2016-11-05 10:57 | PCM.PNMED ---
Subjective Date of Service Nov 05, 2016 Subjective Patient seen and examined. Pain in left leg with swelling. Denies shortness of breath. Vitals stable. Exam Vital Signs Vital Sign - Last Date Time Temp Pulse Resp B/P Pulse Ox O2 Delivery O2 Flow Rate FiO2 11/05/16 09:01 36.7 59 16 109/62 97 Room Air Intake and Output 11/04/16 11/04/16 11/05/16 Cumulative From/Thru 15:00 23:00 07:00 11/04/16 20:13 - 11/05/16 06:18 Intake Total 1261 ml 1261 ml Output Total 1000 ml 1000 ml Balance 261 ml 261 ml Intake Oral 400 ml 400 ml IV Total 861 ml 861 ml Output Urine Total 1000 ml 1000 ml Exam General: Alert, Oriented X3, Cooperative, No acute Distress Chest & Lungs: Clear to auscultation & percussion, No adventitious breath sounds, no crackles, no wheeze Cardiovascular: Normal S1, Normal S2, No Murmurs/Rubs/Gallops, Regular Rate/ Rhythm, (No JVD, no peripheral edema) Pulses: Radial (present and equal), Dorsalis Pedi (present and equal) Extremities: Several linear areas of erythema about the left calf and ankle area. Marked edema of the left leg compared to right. Swelling and tenderness of the medial thigh Skin: No rashes. Warm and dry, no erythematous areas Neurological: Grossly neurologically intact, Normal Speech, Sensation Intact Lymphatic: Lymph nodes Cervical and Axillary not palpable. Lab and Diagnostics Result Diagram: 11/04/16213711/04/162137 X-Rays, CTs and MRIs US VEINOUS LEG DUPLEX UNILATERAL, LEFT 11/04 FINDINGS within the left lower extremity deep venous system there is deep venous thrombosis involving the common femoral vein extending into the superficial femoral vein and to the upper margin of the popliteal vein. It is nonocclusive in the common femoral vein and the superficial femoral vein proximally but is occlusive in the mid to distal superficial femoral vein and at the popliteal vein junction. IMPRESSION: A combination of occlusive and nonocclusive DVT is found within the left lower extremity venous system, as discussed above. Dictated by: Ok Kenney M.D. on 11/04/2016 at 21:47 Approved by: Ok Kenney M.D. on 11/04/2016 at 21:49 Assessment & Plan Luis Saeed is a 21 yo male with recent diagnosis of DVT and currently on Coumadin presenting to [facility] emergency department c/o Left leg redness, swelling, and pain 1. Recurrent left lower extremity Deep Vein thrombosis. Present on admission Likely due to non compliance with Coumadin of possible failed Coumadin treatment. Workup from last admission reviewed. Consensus was that the event was unprovoked. Unfortunately the patient cannot have a hypercoagulable workup as he is on Coumadin - s/p EKOS 09/25/16 with subsequent venogram - Heparin drip initiate - consider Eliquis or Pradaxa as possible alternative, discussed with him and family (mom), reluctant - discussed the case with Dr. Talbert in details, patient may benefit from seeing a vascular surgeon outpatient for possible intervention, however at this time best course is anticoagulation - will get hematology consult - Pain management with Vicodin, hydromorphone 1 mg IV as needed for breakthrough pain 2 Chronic insomnia - continue Hydroxyzine 50 mg daily at bedtime when necessary 3 Nicotine dependence Tobacco cessation discussed and encouraged - Nicotine patch upon request - Acetaminophen as needed for mild pain/fever/headache - Bowel regimen as needed - Antiemetic as needed Patient admitted under inpatient status with expected length of stay > 2 midnights for severity of present symptoms, complexities of treatment plan and risk for adverse event . Resuscitation Status: CPR: Attempt Resuscitation Time spent 35 mins Paul Troy MD Nov 05, 2016 10:57
[2016-11-05] MEDS: HYDROcodone-APAP 5-325 mg Tablet PO PRN ×3 (14:30→21:37)
--- NOTE | 2016-11-05 15:23 | NUR ---
Arrival to room 246-2 Pt arrived via bed to room at 1320. Heparin infusing at 15 ml/hr, rate just changed by RN prior to arrival. mom at bedside Pt oriented to room and call light. Pt requesting IV site be changed as over bony prominance and unable to bend wrist. OP RN able to change site. Pt c/o LLE pain, po rx given
--- NOTE | 2016-11-05 16:04 | PROG NOTE ---
[address] [address] PROGRESS NOTE PATIENT: ROGER VILLALBA : 1995 MR#: [id number] ADMIT: 11/04/2016 JOB ID: [id number] DATE: 11/05/2016 LOCATION: [facility] Inpatient Service NEW CONSULTATION NOTE: REFERRING PHYSICIAN: Paul Troy MD REASON FOR CONSULTATION: To evaluate for Coumadin resistance. HISTORY OF PRESENT ILLNESS: The patient is a very pleasant 21-year-old male with an antecedent history of the left lower extremity DVT initially identified on September 27, 2016. This was confirmed via ultrasound on which identified a nonocclusive thrombus involving the superficial femoral to the popliteal vein. The common femoral was noted to be clear. The patient was subsequently discharged on warfarin 5 mg daily with concurrent Lovenox. The patient states that his Coumadin doses have been monitored by his primary care physician, being bumped up to 7.5 to 10 mg, to ultimately 15 mg just over three weeks ago. He states that the highest his INR was ever reported was 2.1 when he was on the 10 mg dose. It subsequently dropped down to 1.2. Coumadin was subsequently increased to 15 mg daily. During this period of time the patient was on subcutaneous Lovenox. However, approximately two weeks ago the patient's Coumadin was dropped back down to 10 mg. INR was at 1.9 at that time. The patient states that the decreased dose was in anticipation of a rapid increase in his INR at 15 mg. Lovenox was also discontinued at that time. Subsequently the patient has developed increasing left lower extremity pain over the past 2-3 days with associated swelling to the point where he also had complicating numbness. The patient was reevaluated at [facility] emergency department on November 04, 2016 at which time his PT was 13.8, INR was 1.28. Ultrasound of the left lower extremity showing progression of his thrombus, now involving the left common femoral vein as well as now appearing occlusive at the superficial and popliteal regions. The patient has been placed back on IV heparin. The remainder of his review systems during this period of time was unremarkable for any fevers, chills, cough, sore throat. He is not aware of any bleeding complications. ALLERGIES: Erythromycin. Reaction is unclear to the patient as it occurred as a child. PAST MEDICAL HISTORY: Significant for left lower extremity DVT as described above. PAST SURGICAL HISTORY: Noncontributory. FAMILY HISTORY: The patient's mother diagnosed with early stage cervical cancer alive and well. A maternal grandmother with ovarian cancer. Father diagnosed with "cancer in his lymph nodes." No other reported family history of DVT is known. SOCIAL HISTORY: The patient works in customer service. Has an approximately 12 pack per year history of tobacco. Had a significant alcohol history but recently cut back substantially. PHYSICAL EXAMINATION: Vital signs: Weight today was 110.5 kg, blood pressure is 109/62, temperature is 36, pulse was 59, respiratory rate 16, and he is saturating at 97% on room air. He is A and O x3, in good spirits overall. Affect is appropriate. Healthy appearing, well-nourished. No cervical, supraclavicular, or axillary adenopathy was appreciated. No palpable spleen was felt. COR was RRR. Lungs were clear to auscultation bilaterally. Abdomen was nondistended, nontender. Lower extremity showing the left-sided swelling. No cyanosis to the toes. Cranial nerves otherwise grossly intact. LABORATORY DATA: Additional laboratory data from November 04, 2016 reporting a sodium 138, a potassium of 4.1, a serum creatinine of 0.62, calcium 9.3. AST 16, ALT 16, alk phos 78. ASSESSMENT AND PLAN: The patient is a very pleasant 21-year-old male with a diagnosis of left lower extremity deep venous thrombosis identified in September 2016. Unfortunately, the patient has not had a recorded sustained therapeutic level on his Coumadin. He had been on concurrent Lovenox up to two weeks ago. Unfortunately, the patient's symptoms of left lower extremity swelling and pain correlating to progression of his thrombus in the left lower extremity, now involving the common femoral vein as well as appearing occlusive in the superficial and popliteal region. The patient's admitting INR was also nontherapeutic at 1.28. The patient is currently on a heparin drip. He shows no evidence of Coumadin resistance. Recommendations for the patient at this time are to continue with anticoagulation with warfarin with a target INR of 2.5-3. He should continue with bridging Lovenox at 1 mg/kg b.i.d. during this period time. The patient should stay on his Lovenox until his INR has been documented on two subsequent weekly measurements above 2.5. In addition, the patient may considered a direct Xa inhibitor such as rivaroxaban or apixaban. Would recommend against direct thrombin inhibitors such as Pradaxa given that he is not Coumadin resistant. The patient is scheduled to follow up in our clinic in approximately two weeks' time for further hypercoagulable workup. He otherwise had no further questions. Thank you very much, Dr. Troy, for the kind referral. Please call with any questions or concerns.
[2016-11-06] MEDS: HYDROmorphone 1 mg/mL Inj IVPUSH PRN ×4 (00:27→21:26)
[2016-11-06] MEDS: HYDROcodone-APAP 5-325 mg Tablet PO PRN ×5 (01:41→22:46)
[2016-11-06] MEDS: Heparin 25K Unit/500mL 0.45 NS 25,000 UNIT in IV Premix 1 EACH IV SCH (03:04)
[2016-11-06] MEDS: 0.9% Sodium Chloride 1,000 ML IV SCH (04:15)
[2016-11-06 04:32] VITALS: BP 104/64; PULSE 50; RESP 17; O2SAT 99
[2016-11-06 06:48] LABS: BASOPHILS % (AUTO) 0.2 % (0-3); EOSINOPHILS % (AUTO) 3.7 % (0-5); MONOCYTES % (AUTO) 11.5 % (4-12); Mean Corpuscular Hemoglobin 30.3 pg (27.0-35.0); Mean Corpuscular Volume 92.9 fL (81-100); NEUTROPHILS % (AUTO) 42.9 % (40-74); Platelet Count 215 bil/L (150-400)
--- NOTE | 2016-11-06 07:26 | NUR ---
Shift Note Assumed pt care at 1900 pt continuous with IVF and Heparin gtt, therapeutic x2, recheck with am labs, pt on tele, 2 episode of Sinus Bradycardia at 35 and 38, vitals stable, pt asymptomatic.
[2016-11-06 07:30] VITALS: BP 133/66; PULSE 43; RESP 15; O2SAT 95
[2016-11-06 08:00] VITALS: PULSE 45
[2016-11-06 13:00] VITALS: BP 147/68; PULSE 53; RESP 15; O2SAT 97
--- NOTE | 2016-11-06 13:02 | PCM.PNMED ---
Subjective Date of Service Nov 06, 2016 Subjective Continues to have left leg pain. Exam Vital Signs Vital Sign - Last Date Time Temp Pulse Resp B/P Pulse Ox O2 Delivery O2 Flow Rate FiO2 11/06/16 07:30 36.7 43 15 133/66 95 Room Air Intake and Output 11/05/16 11/05/16 11/06/16 Cumulative From/Thru 15:00 23:00 07:00 11/04/16 20:13 - 11/06/16 04:33 Intake Total 2172 ml 2080 ml 5513 ml Output Total 625 ml 350 ml 1975 ml Balance 1547 ml 1730 ml 3538 ml Intake Oral 600 ml 750 ml 1750 ml IV Total 1572 ml 1330 ml 3763 ml Output Urine Total 625 ml 350 ml 1975 ml # Voids 2 2 # Bowel Movements 0 0 Exam General: Alert, Oriented X3, Cooperative, No acute Distress Chest & Lungs: Clear to auscultation & percussion, No adventitious breath sounds, no crackles, no wheeze Cardiovascular: Normal S1, Normal S2, No Murmurs/Rubs/Gallops, Regular Rate/ Rhythm, (No JVD, no peripheral edema) Pulses: Radial (present and equal), Dorsalis Pedi (present and equal) Extremities: Several linear areas of erythema about the left calf and ankle area. Marked edema of the left leg compared to right. Swelling and tenderness of the medial thigh Skin: No rashes. Warm and dry, no erythematous areas Neurological: Grossly neurologically intact, Normal Speech, Sensation Intact Lymphatic: Lymph nodes Cervical and Axillary not palpable. IVs and Medications Medications Reviewed: Medications were reviewed in detail Lab and Diagnostics Result Diagram: 11/06/16 0620 11/04/168 X-Rays, CTs and MRIs US VEINOUS LEG DUPLEX UNILATERAL, LEFT 11/04 FINDINGS within the left lower extremity deep venous system there is deep venous thrombosis involving the common femoral vein extending into the superficial femoral vein and to the upper margin of the popliteal vein. It is nonocclusive in the common femoral vein and the superficial femoral vein proximally but is occlusive in the mid to distal superficial femoral vein and at the popliteal vein junction. IMPRESSION: A combination of occlusive and nonocclusive DVT is found within the left lower extremity venous system, as discussed above. Dictated by: Ok Kenney M.D. on 11/04/2016 at 21:47 Approved by: Ok Kenney M.D. on 11/04/2016 at 21:49 Assessment & Plan Luis Saeed is a 21 yo male with recent diagnosis of DVT and currently on Coumadin presenting to [facility] emergency department c/o Left leg redness, swelling, and pain 1. Recurrent left lower extremity Deep Vein thrombosis. Present on admission Likely due to non compliance with Coumadin of possible failed Coumadin treatment. Workup from last admission reviewed. Consensus was that the event was unprovoked. Unfortunately the patient cannot have a hypercoagulable workup as he is on Coumadin - s/p EKOS 09/25/16 with subsequent venogram - Heparin drip initiated, switched to Lovenox. - will consider Eliquis. Prescription for eliquis given to mom to check the copay - discussed the case with Dr. Talbert in details, patient may benefit from seeing a vascular surgeon outpatient for possible intervention, however at this time best course is anticoagulation - hematology Dr Carmona consulted. Recommend target INR 2.5-3 - Pain management with Vicodin, hydromorphone 1 mg IV as needed for breakthrough pain 2 Chronic insomnia - continue Hydroxyzine 50 mg daily at bedtime when necessary 3 Nicotine dependence Tobacco cessation discussed and encouraged - Nicotine patch upon request - Acetaminophen as needed for mild pain/fever/headache - Bowel regimen as needed - Antiemetic as needed Patient admitted under inpatient status with expected length of stay > 2 midnights for severity of present symptoms, complexities of treatment plan and risk for adverse event Possible discharge tomorrow . Resuscitation Status: CPR: Attempt Resuscitation Cheikh Guidry MD Nov 06, 2016 13:02
[2016-11-06 15:45] VITALS: BP 106/57; PULSE 59; RESP 16; O2SAT 97
--- NOTE | 2016-11-06 16:15 | NUR ---
Social Work- Initial Assessment/Multidisciplinary Rounds Data: EMR reviewed. Pt is a 21 year old male admitted 11/04/16 for DVT per H&P. Pt discussed in multidisciplinary rounds. MD is looking into potentially changes pt's medications to be more amenable to his lifestyle as a 21 y.o. rather than regular follow up with PCP. Pt has history of noncompliance with his medication after last admission. MD and family are coordinating this, SW to assist as requested. Pt's insurance is [employer]. Pt's PCP is Irma Devlin MD. SW met with pt at bedside regarding discharge plan, SW role explained. Pt alert and oriented x3. Pt resides in [place] with his mother, step father, and siblings where he is independent at baseline. Pt uses cane at baseline. Last admission, pt was noted to drink 3 beers daily. Pt reports that he has decreased this to 2-3 beers every other day. Pt anticipated to discharge home with family to transport via POV. No discharge needs identified. SW will continue to follow if needs arise. Assessment: Pt who is independent at baseline. Plan: Pt anticipated to discharge home with family to transport via POV. No discharge needs identified. SW will continue to follow if needs arise. HUYEN Dumont Addendum: 11/06/16 at 1618 by KELLI COLEMAN Amended: Links added.
--- NOTE | 2016-11-06 19:09 | NUR ---
Heparin/activity Heparin gtt discontinued, pt. self administered 1st dose of lovenox. Pt. reporting pain to be 6/10, norco helpful with pain management. Trying to ween off of IV pain meds. Tele reading Demetrius in the 40-50s. Pt. has been ambulatory to bathroom, elevated left leg when resting. Pain is in low calf/ankle area. Pt. in shower currently; tele off, ok with Dr. Montelongo. Report given to MUKESH Faustin to continue care.
[2016-11-06 20:30] VITALS: BP 123/71; PULSE 55; PULSE 57; RESP 17; O2SAT 99
[2016-11-07] MEDS: HYDROmorphone 1 mg/mL Inj IVPUSH PRN ×2 (03:07→07:55)
[2016-11-07 03:29] VITALS: PULSE 50
[2016-11-07 04:35] VITALS: PULSE 40
[2016-11-07] MEDS: HYDROcodone-APAP 5-325 mg Tablet PO PRN (05:51)
[2016-11-07 05:56] VITALS: BP 106/56; PULSE 50; RESP 17; O2SAT 100
[2016-11-07 07:48] VITALS: BP 102/58; PULSE 44; RESP 16; O2SAT 97
[2016-11-07 08:00] VITALS: PULSE 65
--- NOTE | 2016-11-07 10:12 | PCM.DIMED ---
Discharge Instructions Date of Service Nov 07, 2016 Dates of Hospitalization Nov 04, 2016 at 23:56 Discharge Diagnosis Discharge Diagnosis 1. Recurrent left lower extremity Deep Vein thrombosis. Present on admission Likely due to non compliance with Coumadin 2 Chronic insomnia 3 Nicotine dependence 4 asymptomatic bradycardia Diet Discharge Diet: No restrictions Activity Discharge Activity: No restrictions, Limited until seen by PCP Call your provider Call your provider for: Fever or Chills, Shortness of breath, Bleeding, Chest pain, Vomitting, Excessive diarrhea, Weakness (unilateral) Patient Instructions Patient Instructions You were hospitalized due to recurrent left lower extremity DVT due to warfarin noncompliance . You are started on Eliquis 5mg twice daily . Please take your medications as prescribed . Please follow up with beader tender Dr Carmona for hypercoagulable workup in 2 weeks. Follow-up Provider: Irma Devlin MD Follow-up with PCP in: 1 week Provider: Deny Carmona DO Follow-up in: 2 weeks Cheikh Guidry MD Nov 07, 2016 10:12
[2016-11-07] MEDS ORDERED: OXYC1TAB24 PO (10:13)
[2016-11-07] MEDS ORDERED: APIX5TAB PO (10:13)
--- NOTE | 2016-11-07 12:45 | NUR ---
Social Work: Discharge/Multidisciplinary Rounds D: EMR reviewed. Pt is on day 3 of hospitalization. Pt discussed in multidisciplinary rounds. Per multidisciplinary rounds, pt is medically clear for discharge home today - no SW needs identified, no MD orders received. Pt anticipated to discharge home with family to transport via POV. SW will continue to follow if needs arise. A: Pt who is independent at baseline. P: Pt anticipated to discharge home with family to transport via POV. No discharge needs identified. SW will continue to follow if needs arise. HUYEN Mcclendon
--- NOTE | 2016-11-07 13:09 | NUR ---
Discharge Note Pt discharged, mother present to transport home. IV catheter x 1 & telemetry box removed. Patient sleeping prior to discharge, comfortable, no c/o pain. Discharge instructions/medications discussed & understood, prescriptions x 2 given to mother. Home bottle of Eliquis given to patient. All belongings gathered, nothing left behind. Patient transported out via wheelchair by .
--- NOTE | 2016-11-07 19:46 | PCM.DC.MED ---
Discharge Summary Date of Service Nov 07, 2016 Dates of Hospitalization Date of Hospital Admission Nov 04, 2016 at 23:56 Date of Discharge: Nov 07, 2016 Providers: Admitting Physician: Rush Mari MD Primary Care Physician: Irma Devlin MD Attending Physician: Cheikh Pires MD Diagnosis at Time of Discharge Diagnosis at Time of Discharge 1. Recurrent left lower extremity Deep Vein thrombosis. Present on admission Likely due to non compliance with Coumadin 2 Chronic insomnia 3 Nicotine dependence 4 asymptomatic bradycardia Consultations hematology Dr Carmona Procedures XRay, CTs & MRIs US VEINOUS LEG DUPLEX UNILATERAL, LEFT 11/04 FINDINGS within the left lower extremity deep venous system there is deep venous thrombosis involving the common femoral vein extending into the superficial femoral vein and to the upper margin of the popliteal vein. It is nonocclusive in the common femoral vein and the superficial femoral vein proximally but is occlusive in the mid to distal superficial femoral vein and at the popliteal vein junction. IMPRESSION: A combination of occlusive and nonocclusive DVT is found within the left lower extremity venous system, as discussed above. Dictated by: Ok Kenney M.D. on 11/04/2016 at 21:47 Approved by: Ok Kenney M.D. on 11/04/2016 at 21:49 Brief History per HPI Luis Saeed is a 21 yo male with recent diagnosis of DVT and currently on Coumadin presenting to [facility] emergency department c/o Left leg redness, swelling, and pain onset today. Patient has reported missing his Coumadin for 5 days because he jus forgot. He reported taking the Lovenox until his doctor told him to stop because INR was 2.0. He has complained of increasing left leg pain, similar to his previous complaint when he was diagnosed with DVT. Pain 8/10 intensity without any radiation. Exacerbated with left leg movement. Denies any pleuritic chest pain or dyspnea. The patient was admitted 09/24/16 for Left leg swelling and pain after 2 long periods of immobilization with recent long car trips and was found to have an occlusive LLE DVT. Mother reported no family history of thrombotic disease During the admission, Dr. Cruz performed an EKOS procedure without any complications. He was discharged on 09/28 with plan for transition to Warfarin with Lovenox bridge. Case discussed with Dr Wray, Ultrasound showed persistent DVT. Heparin drip started with plans to admit Hospital Course Luis Saeed is a 21 yo male with recent diagnosis of DVT and currently on Coumadin presenting to [facility] emergency department c/o Left leg redness, swelling, and pain 1. Recurrent left lower extremity Deep Vein thrombosis. Present on admission Likely due to non compliance with Coumadin of possible failed Coumadin treatment. Workup from last admission reviewed. Consensus was that the event was unprovoked. Unfortunately the patient cannot have a hypercoagulable workup as he is on Coumadin - s/p EKOS 09/25/16 with subsequent venogram - Heparin drip initiated, switched to Lovenox.discharged on elequis - discussed the case with Dr. Talbert in details, patient may benefit from seeing a vascular surgeon outpatient for possible intervention, however at this time best course is anticoagulation - hematology Dr Carmona consulted. Recommend target INR 2.5-3 if warfarin. patient discharged on elequis 5 mg bid given noncompliance -follow up with Dr Carmona in 2 weeks for hypercoagulable workup - Pain management with percocet 2 Chronic insomnia - continue Hydroxyzine 50 mg daily at bedtime when necessary 3 Nicotine dependence Tobacco cessation discussed and encouraged - Acetaminophen as needed for mild pain/fever/headache - Bowel regimen as needed - Antiemetic as needed discharged home Exam Vital Signs (Last) Date Time Temp Pulse Resp B/P Pulse Ox O2 Delivery O2 Flow Rate FiO2 11/07/16 08:00 65 11/07/16 07:48 36.6 16 102/58 97 Room Air Exam General: Alert, Oriented X3, Cooperative, No acute Distress Chest & Lungs: Clear to auscultation & percussion, No adventitious breath sounds, no crackles, no wheeze Cardiovascular: Normal S1, Normal S2, No Murmurs/Rubs/Gallops, Regular Rate/ Rhythm, (No JVD, no peripheral edema) Pulses: Radial (present and equal), Dorsalis Pedi (present and equal) Extremities: Several linear areas of erythema about the left calf and ankle area. Marked edema of the left leg compared to right. Swelling and tenderness of the medial thigh Skin: No rashes. Warm and dry, no erythematous areas Neurological: Grossly neurologically intact, Normal Speech, Sensation Intact Lymphatic: Lymph nodes Cervical and Axillary not palpable. Test 11/04/16 21:38 11/06/16 06:20 11/06/16 07:05 11/07/16 06:10 Sodium Level 138mEq/L (134-144) Potassium Level 4.1mEq/L (3.5-5.2) Chloride Level 102mEq/L (97-108) Carbon Dioxide Level 19mmol/L (18-29) Blood Urea Nitrogen 11mg/dL (6-20) Creatinine 0.62mg/dL (0.76-1.27) Estimat Glomerular Filtration Rate 174mL/min (>59) Glucose Level 90mg/dL (60-99) Calcium Level 9.3mg/dL (8.5-10.1) Magnesium Level 1.9mg/dL (1.6-2.6) Total Bilirubin 0.5mg/dL (0.0-1.2) Aspartate Amino Transf (AST/SGOT) 16U/L (0-50) Alanine Aminotransferase (ALT/SGPT) 16U/L (0-44) Alkaline Phosphatase 78U/L (25-150) Total Protein 7.4g/dL (6.4-8.4) Albumin 4.1g/dL (3.4-5.0) Hold Browne Top Tube Received (Received) White Blood Count 8.2th/mm3 (3.8-10.1) Red Blood Count 4.62mil/mm3 (4.40-5.80) Hemoglobin 14.0g/dL (13.8-17.2) Hematocrit 42.9% (41.0-50.0) Mean Corpuscular Volume 92.9fL (81-100) Mean Corpuscular Hemoglobin 30.3pg (27.0-35.0) Mean Corpuscular Hemoglobin Concent 32.6% (32.0-37.0) Red Cell Distribution Width 13.4% (12.3-15.4) Platelet Count 215bil/L (150-400) Neutrophils (%) (Auto) 42.9% (40-74) Lymphocytes (%) (Auto) 41.6% (14-46) Monocytes (%) (Auto) 11.5% (4-12) Eosinophils (%) (Auto) 3.7% (0-5) Basophils (%) (Auto) 0.2% (0-3) Activated Partial Thromboplast Time 70.2sec (22.8-33.0) Prothrombin Time 10.7sec (8.1-12.5) Prothromb Time International Ratio 1.00ratio Discharge Medications Discharge Medications Apixaban (Eliquis) 5 Mg Tablet 5 MG PO BID Prescribed by: CHEIKH PIRES MD Famotidine (Pepcid) 20 Mg Tablet 40 MG PO DAILY Prescribed by: ALVA RANDALL DO Triamcinolone Acet (Triamcinolone Acetonide Ointment) 1 Applic/0.25 Gm Oint 1 APPLIC TOP BID (Reported) As needed Hydroxyzine Pamoate (HydrOXYzine Pamoate) 25 Mg Capsule 50 MG PO HS PRN PRN Insomnia (Reported) oxyCODONE-Acetaminophen 5-325 mg (oxyCODONE-Acetaminophen 5-325 mg) 1 Each Tablet 1 TAB PO Q6H PRN PRN For Pain Prescribed by: CHEIKH PIRES MD Followup Plan Disposition: home Discharge Diet: No restrictions Discharge Activity: No restrictions, Limited until seen by PCP Patient Instructions You were hospitalized due to recurrent left lower extremity DVT due to warfarin noncompliance . You are started on Eliquis 5mg twice daily . Please take your medications as prescribed . Please follow up with fire lookout Dr Carmona for hypercoagulable workup in 2 weeks. Follow-up Provider: Irma Devlin MD Follow-up with PCP in: 1 week Provider: Deny Carmona DO Follow-up in: 2 weeks Time spent 25 minutes copies to: Deny Carmona DO; Irma Devlin MD, Melaku MD Nov 07, 2016 19:46
== END 2016-11-07 12:17 | disposition home or self-care (01) | DRG 301 ==
LOC: SED 20:03 → OFED 23:56 → MOC 11-05 13:18
PROVIDERS: ADMIT Hospitalist; ATTEND Internal Medicine
DX: I82.412 Acute embolism and thrombosis of left femoral vein (principal); I82.532 Chronic embolism and thrombosis of left popliteal vein; F17.200 Nicotine dependence, unspecified, uncomplicated; F12.10 Cannabis abuse, uncomplicated; F51.04 Psychophysiologic insomnia; Z91.14 Patient's other noncompliance with medication regimen; Z79.01 Long term (current) use of anticoagulants